=== PATIENT | female | born 1965 | race Caucasian/White ===

== ENCOUNTER 2019-07-09 07:43 | Day surgery (SDC) | payer OTHER ==
[2019-07-04 10:12] VITALS: BMI 27.7
[~2019-07-09 07:43] MED LIST: MIDAZOLAM 2 MG/2 ML VIAL IV PRN; ROPIVACAINE 246.25 MG, EPINEPHrine 0.5 MG, KETOROLAC 30 MG, cloNIDine HCL/PF 80 MCG, WA... MISCELLANE ONE; SCOPOLAMINE 1.5MG/72HR PATCH TRANSDERM ONE; TRANEXAMIC ACID 1,000 MG in SODIUM CHLORIDE 0.9% 100 ML IVPB ONE
[2019-07-09] MEDS ORDERED: TEMAZEPAM 15 MG CAP PO PRN (08:42)
[2019-07-09] MEDS ORDERED: traMADol 50 MG TAB PO PRN (08:42)
[2019-07-09] MEDS ORDERED: HYDROcodone/APAP 7.5-325MG 1 EACH TAB PO PRN (08:42)
[2019-07-09] MEDS ORDERED: ONDANSETRON 4 MG/2 ML VIAL IVP PRN (08:42)
[2019-07-09] MEDS ORDERED: DIAZEPAM 5 MG TAB PO PRN (08:42)
[2019-07-09] MEDS ORDERED: MAGNESIUM HYDROXIDE 2,400 MG/10 ML CUP PO PRN (08:42)
[2019-07-09] MEDS ORDERED: ACETAMINOPHEN TAB 325 MG TAB PO PRN (08:42)
[2019-07-09] MEDS ORDERED: HYDROmorphone 0.5 MG/0.5 ML SYRINGE IVP PRN ×2 (08:42)
[2019-07-09] MEDS ORDERED: HYDROmorphone 1 MG/ML 1 ML SYRINGE IVP PRN (08:42)
[2019-07-09] MEDS ORDERED: NALOXONE 0.4 MG/ML 1 ML VIAL IV PRN (08:42)
[2019-07-09] MEDS: LACTATED RINGERS 1,000 ML IV SCH ×4 (08:46→23:28)
[2019-07-09] MEDS ORDERED: LIDOCAINE 1% 20 ML VIAL (10MG/ML) FOR IV START INTRADERMA ONE (08:47)
[2019-07-09] MEDS: MELOXICAM 7.5 MG TAB PO ONE ×2 (08:48→13:29)
[2019-07-09] MEDS: GABAPENTIN 300 MG CAP PO ONE ×2 (08:48→13:29)
[2019-07-09] MEDS: ACETAMINOPHEN TAB 500 MG TAB PO ONE ×2 (08:48→13:28)
[2019-07-09] MEDS: DEXAMETHASONE SOD PHOSPHATE 10 MG/ML 1 ML VIAL IV ONE ×2 (08:48→13:29)
[2019-07-09] MEDS: ONDANSETRON 4 MG/2 ML VIAL IVP ONE ×2 (08:48→13:29)
[2019-07-09] MEDS ORDERED: SODIUM CHLORIDE 0.9% IRRIG 1,000 ML BTL IRRIGATION ONE (09:22)
[2019-07-09] MEDS ORDERED: fentaNYL (PF) 50 MCG/ML 2 ML AMP ONE (09:22)
[2019-07-09] MEDS ORDERED: TRANEXAMIC ACID 1,000 MG/10 ML VIAL ONE (09:22)
[2019-07-09] MEDS ORDERED: SODIUM CHLORIDE 0.9% 100 ML BAG ONE (09:22)
[2019-07-09] MEDS ORDERED: HEPARIN SODIUM,PORCINE 10,000 UNIT/ML 1 ML VIAL ONE (09:22)
[2019-07-09] MEDS ORDERED: PHENYLEPHRINE-0.9% NACL SYG 1 MG/10 ML SYRINGE ONE (09:22)
[2019-07-09] MEDS ORDERED: PROPOFOL 10 MG/ML 20 ML VIAL IV ONE (09:22)
[2019-07-09] MEDS ORDERED: MIDAZOLAM 2 MG/2 ML VIAL ONE (09:22)
[2019-07-09] MEDS ORDERED: ceFAZolin 3,000 MG in SODIUM CHLORIDE 0.9% IRRIGATIO 3,000 ML IRRIGATION ONE (09:27)
--- NOTE | 2019-07-09 10:54 | P.OP ---
Date of Procedure: 07/09/19 Preoperative Diagnosis: Severe osteoarthritis right hip Postoperative Diagnosis: Severe osteoarthritis right hip Procedure(s) Performed: Right total hip arthroplasty with a direct anterior approach Implants: Michael and nephew Polarstem size7 standard Michael & Nephew R3, 3 hole acetabular shell, 52 mm Michael & Nephew reflection 6.5 mm cancellus screw, 20 mm 2 Michael [employer] Nephew R3, XLPE 20 acetabular liner Michael & Nephew Oxinium femoral head 36 m, +4 All components were press-fit. The articulation is Oxinium on polyethylene. Anesthesia: spinal Surgeon: Jorge Nobles Sign Painter Apprentice #1: Iker Villavicencio Pathology: other (Femoral head) Condition: stable Disposition: PACU Indications for Procedure: After failure of conservative treatment we discussed the surgical and nonsurgical treatment options at length. Patient wishes to proceed with a total hip arthroplasty with a direct anterior approach. Complications specific to this procedure were discussed at length, including but not limited to infection, leg length discrepancy, dislocation, and nerve injury. Patient is aware of all these complications and informed consent was obtained Operative Findings: The operative findings are consistent with severe osteoarthritis of the right hip Description of Procedure: Patient was seen and evaluated in the preoperative area, consent was reviewed, and the surgical site was marked with a skin marker. Patient was then brought to the operating room and given prophylactic antibiotics intravenously. 1 g of Tranexamic acid was also given. A spinal anesthetic was administered by the anesthesia department. The patient was then placed on the Burlington table with the bony prominences well-padded. The hip area was then prepped and draped in usual sterile fashion. A universal timeout was then performed, which confirmed the patient's name, surgical site, ALLERGIES, and procedure being performed. Next the incision site was located at 1 cm distal and 1 cm lateral to the anterior superior iliac spine. The skin and subcutaneous tissues were sharply incised. Incision was carefully dissected down to the fascia overlying the tensor fascia audrey muscle. This fascia was then incised in line with the incision. Next, using blunt finger dissection, the tensor fascia audrey muscle was dissected off its investing fascia. The muscle was then carefully retracted laterally with a cobra retracto r over the lateral neck of the femur. Next, the circumflex vessels were identified and cauterized using the AquaMantis device. The anterior hip capsule was then exposed. The capsule was then opened and an inverted T fashion. Cobra retractors were then placed intracapsularly. The proximal femur was then visualized. The femoral neck was then osteotomized appropriate level above the lesser troc hanter. Small amount of traction was placed with the Burlington table. A small wedge of bone was then removed from the remaining femoral head. Next, using a corkscrew femoral head was easily removed from the acetabulum. On gross visual inspection, the femoral head had complete loss of articular cartilage in multiple periarticular osteophytes. Attention was then turned to the acetabulum. the acetabulum was exposed and any remaining labrum was excised. Sequential reaming of the acetabulum was performed using fluoroscopic guidance. When the appropriate size was reached, a trial was then placed. The position and fit of the trial was checked with fluoroscopy. The trial was then removed. Then, using fluoroscopic guidance, the final implant was impacted at 20 of anteversion and 40 of abduction, and fully seated in the acetabulum. 2 screws were then placed in the acetabulum. Again fluoroscopy was used to check position of the screws. Next, the liner was then impacted, with a 20 elevated liner located in the anterior superior quadrant. Component locking was confirmed. Attention was then directed to the femur. With the aid of the Burlington table, the femur was externally rotated to approximately 130, extended, and abducted under the opposite leg. A side hook was then placed under the proximal femur, and the side hook elevator was used to elevate the proximal femur. Retractors were then placed. A capsular release was performed, as well as a release of the conjoined tendon, which afforded excellent visualization of the proximal femur. Next, a box osteotome was used to lateralize the proximal femur. A hand deicer element winder was then used to locate the femoral canal. Sequential broaching was then performed with appropriate size which afforded excellent fixation in the proximal femur. A trial was then placed with appropriate head and neck, and the hip was gently reduced with the aid of the Burlington table. Fluoroscopy was then used to check position of the components, as well as to ensure equal leg lengths. The hip was then gently dislocated and the trials were then removed. Final implants were then impacted and the hip was again reduced. Final fluoroscopic x-rays confirm ed that the components were in anatomic position, as well as equal leg lengths. The hip was also taken through range of motion, and found to be stable. The hip was then copiously irrigated with antibiotic solution with pulsatile lavage. The hip was then irrigated with Irrisept solution. The soft tissues were then injected with a ropivacaine solution, which consisted of 246.25 mg of ropivacaine, 0.5 mg of epinephrine, 30 mg of Toradol, 80 g of clonidine, and 48.45 mL of sterile water, for a total of 100 mL of fluid injected. A second dose of 1 g of Tranexamic acid was also given. the fascia was then closed with 2-0 strata fix suture. The subcutaneous tissue was closed with 3-0 Vicryl. The subcuticular tissue was closed with 3-0 strata fix suture. The skin was then closed with Dermabond glue and a sterile silver dressing. The patient was then transferred to the recovery room in stable condition. The medical receptionist medical assistant SHALOM Guerrero was required due to the complexity of surgery, and the need for skilled surgical dental assistant for positioning, draping, exposure, retraction, and closure of the wound.
--- NOTE | 2019-07-09 11:59 | XR ---
EXAMINATION TYPE: XR Hip Limited RT DATE OF EXAM: 07/09/2019 CLINICAL HISTORY: Right hip pain and osteoarthritis. TECHNIQUE: Single AP portable view of right hip is obtained immediately postoperatively. COMPARISON: None. FINDINGS: Metallic hardware from right hip arthroplasty is seen and appears satisfactory in alignment and position. There is evidence of recent surgery with some soft tissue swelling noted laterally. IMPRESSION: Metallic hardware from right hip arthroplasty is satisfactory in position.
--- NOTE | 2019-07-09 12:10 | FL ---
Fluoroscopy HISTORY: Anterior hip replacement 1.17 minutes fluoroscopy time supplied to the referring clinician. 2 intraoperative C-arm images doc ument the procedure. See dictated report from orthopedic surgery.
[2019-07-09] MEDS: HYDROmorphone 0.5 MG/0.5 ML SYRINGE IVP PRN ×2 (12:34→12:40)
[2019-07-09] MEDS: HYDROcodone/APAP 7.5-325MG 1 EACH TAB PO PRN ×2 (15:15→21:53)
[2019-07-09] MEDS ORDERED: LORATADINE 10 MG TAB PO PRN (17:11)
[2019-07-09] MEDS ORDERED: SENNOSIDES-DOCUSATE SODIUM 1 EACH TAB PO SCH (21:00)
[2019-07-09] MEDS: ASPIRIN 325 MG TAB PO SCH (21:50)
[2019-07-10] MEDS: LACTATED RINGERS 1,000 ML IV SCH ×2 (05:03→08:38)
[2019-07-10] MEDS: HYDROcodone/APAP 7.5-325MG 1 EACH TAB PO PRN (05:56)
[2019-07-10 07:41] VITALS: BP 129/74; PULSE 70; RESP 16; TEMP 97.8
[2019-07-10 07:44] LABS: Basophils % (A) 1 %; Eosinophils # (A) 0.1 k/uL (0-0.7); Eosinophils % (A) 1 %; HCT 30.3 % (34.0-46.0); HGB 9.7 gm/dL (11.4-16.0); Lymphocytes # (A) 2.9 k/uL (1.0-4.8); Lymphocytes % (A) 32 %; MCH 30.7 pg (25.0-35.0); Mean Platelet Volume 7.5; Monocytes # (A) 0.6 k/uL (0-1.0); Monocytes % (A) 7 %; Neutrophils # (A) 5.1 k/uL (1.3-7.7); Neutrophils % (A) 57 %; Platelet Count 184 k/uL (150-450); RBC 3.15 m/uL (3.80-5.40); RDW 13.3 % (11.5-15.5); WBC 8.9 k/uL (3.8-10.6)
--- NOTE | 2019-07-10 08:08 | P.DS ---
Providers Expected date of discharge: 07/10/19 Attending physician: Jorge Nobles Consults: 07/09/19 08:42 Consult Physician Routine Consulting Provider: Elizabeth Delaney Consult Reason/Comments: post op medical management Do you want consulting provider notified?: Yes Primary care physician: Ta Knott - Discharge Diagnosis(es) (1) Osteoarthritis of right hip Current Visit: Yes Status: Acute (2) Status post total hip replacement, right Current Visit: Yes Status: Acute Hospital Course: This is a 54-year-old female with known history of degenerative arthritis of the right hip. The patient presents for evaluation. After discussion and consideration patient elects to proceed with total hip arthroplasty. The patient is seen preoperatively by her primary care physician and cleared for surgery. Patient is admitted to [facility] on 07/09/2019 for right anterior total hip arthroplasty. The procedures performed without complication or sequelae. The patient is doing well postoperatively. Labs and vital signs are stable on day of discharge. On day of discharge patient's hip incision is healing well. There is minimal erythema. There is no drainage noted at this time. There is minimal soft tissue swelling to the hip and thigh. Patient has full foot and ankle motion without difficulty or pain. Neurovascular status to the right lower extremity is intact. Patient is discharged to home in good condition. Pertinent Studies: Laboratory Tests 07/10/19 06:35 WBC 8.9 RBC 3.15 L Hgb 9.7 L Hct 30.3 L Patient Condition at Discharge: Stable Plan - Discharge Summary Discharge Rx Participant: Yes New Discharge Prescriptions: New Aspirin 325 mg PO BID #60 tab Docusate [Colace] 100 mg PO BID #60 capsule Hydrocodone/Acetaminophen [Rhodes 7.5-325] 1 - 2 tab PO Q4-6H PRN 7 Days #50 tab PRN Reason: Pain No Action Vitamin C/Biotin [Hair, Skin and Nails] 1 tab PO DAILY Acetaminophen Tab [Tylenol Tab] 650 mg PO Q6H PRN PRN Reason: Pain Ibuprofen [Motrin] 800 mg PO BID PRN PRN Reason: Pain Cetirizine HCl [Zyrtec] 10 mg PO DAILY PRN PRN Reason: Nasal Congestion Discharge Medication List Acetaminophen Tab [Tylenol Tab] 650 mg PO Q6H PRN 07/04/19 [History] Cetirizine HCl [Zyrtec] 10 mg PO DAILY PRN 07/04/19 [History] Ibuprofen [Motrin] 800 mg PO BID PRN 07/04/19 [History] Vitamin C/Biotin [Hair, Skin and Nails] 1 tab PO DAILY 07/04/19 [History] Aspirin 325 mg PO BID #60 tab 07/10/19 [Rx] Docusate [Colace] 100 mg PO BID #60 capsule 07/10/19 [Rx] Hydrocodone/Acetaminophen [Rhodes 7.5-325] 1 - 2 tab PO Q4-6H PRN 7 Days #50 tab 07/10/19 [Rx] Follow up Appointment(s)/Referral(s): Jorge Nobles DO [Doctor of Osteopathic Medicine] - 2 Weeks Activity/Diet/Wound Care/Special Instructions: Weightbearing as tolerated with walker Keep dressing in place for 10 days unless saturated Aspirin 325 mg twice a day May shower over dressing Follow up with Dr. Jorge Nobles in 2 weeks. Call [facility] with questions or concerns, Discharge Disposition: HOME WITH HOME HEALTH SERVICES
[2019-07-10] MEDS: ASPIRIN 325 MG TAB PO SCH (08:36)
[2019-07-10] MEDS ORDERED: NON FORMULARY DRUG (Vitamin C/Biotin [Hair, Skin And Nails] 1 TAB) PO SCH (09:00)
[2019-07-10] MEDS ORDERED: MULTIVITAMINS, THERA 1 EACH TAB PO SCH (12:00)
== END 2019-07-10 11:20 | disposition home health service (06) ==
LOC: OR 07:43 → 4SSUR 13:19 → EDSTATUS 14:20 → 4SSUR 23:38 → OR 07-10 11:20
PROVIDERS: ATTEND Orthopaedic Surgery
DX: M16.11 Unilateral primary osteoarthritis, right hip (principal); M06.051 Rheumatoid arthritis without rheumatoid factor, right hip; M06.061 Rheumatoid arthritis without rheumatoid factor, right knee; M06.062 Rheumatoid arthritis without rheumatoid factor, left knee; M81.0 Age-related osteoporosis without current pathological fracture; E03.9 Hypothyroidism, unspecified; I49.9 Cardiac arrhythmia, unspecified; I05.1 Rheumatic mitral insufficiency; I67.1 Cerebral aneurysm, nonruptured; G25.81 Restless legs syndrome; N39.0 Urinary tract infection, site not specified; M34.9 Systemic sclerosis, unspecified; J30.9 Allergic rhinitis, unspecified; Z88.0 Allergy status to penicillin; Z88.7 Allergy status to serum and vaccine; Z87.891 Personal history of nicotine dependence; Z86.73 Personal history of transient ischemic attack (TIA), and cerebral infarction without residual deficits; Z90.710 Acquired absence of both cervix and uterus; Z97.3 Presence of spectacles and contact lenses; Z90.49 Acquired absence of other specified parts of digestive tract; Z98.890 Other specified postprocedural states; Z83.3 Family history of diabetes mellitus; Z82.49 Family history of ischemic heart disease and other diseases of the circulatory system
CPT/HCPCS: 97116; 97161; 97535; 97165; 86891; 86900; 86901; 88305; 85025; 86850; 88311; 73501 ×2; 27130; C1776; J2250; J0171; J1644; J1100; J0690 ×2; J2405; J3010; J1885; J2795; J2370; J2704; J0735; J1170

== ENCOUNTER → 2020-08-06 | Outpatient (CLI) | payer OTHER ==
--- NOTE | 2020-08-06 15:37 | MR ---
EXAMINATION TYPE: MR lumbar spine wo con DATE OF EXAM: 08/06/2020 COMPARISON: None HISTORY: [facility] lower back pain TECHNIQUE: Multiplanar, multisequence images of the lumbar spine were acquired. L1-L2: Normal disc appearance without desiccation. No herniation, protrusion or disc bulging. No ca nal stenosis is present. Foramina are patent bilaterally. L2-L3: Posterior extension endplate disc complex causes minimal anterior mass effect on the thecal sa c. Circumferential extension endplate disc complex results in some foraminal encroachment greater on the right than on the left. L3-L4: Posterior extension endplate disc complex causes mild anterior mass effect on the thecal sac. Mild bilateral foraminal encroachment is present L4-L5: Posterior extension of endplate disc complex contacts anterior thecal sac. No significant fora kalie encroachment on the left, lateral extension endplate disc complex extends to cause some mild ri ght-sided foraminal encroachment.. There is some facet arthropathy with hypertrophy ligamentum flavum . L5-S1: Posterior extension endplate disc complex contacts anterior thecal sac. There is some facet ar thropathy change present. No significant foraminal encroachment. Lumbar segments are intact. No paraspinal masses are identified. Conus medullaris has a normal appe arance. Lumbar vertebral bodies show preserved height. Minimal retrolisthesis grade 1 L5-S1, L4-5, L3 -4 and L2-3. Loss of disc height signal present L2-3, L5-S1, there is multilevel spondylosis with end plate discogenic marrow signal change. Probable Schmorl's node present inferior endplate of L4. No ev ident spinal stenosis. IMPRESSION: Degenerative disc disease and facet arthropathy as described, some mild foraminal encroachment is not ed.
== END | disposition home or self-care (01) ==
LOC: RADMRIMAIN 09:04
PROVIDERS: ATTEND Internal Medicine Rheumatology
DX: M51.16 Intervertebral disc disorders with radiculopathy, lumbar region (principal); M47.26 Other spondylosis with radiculopathy, lumbar region
CPT/HCPCS: 72148

== ENCOUNTER 2021-03-26 13:07 | Inpatient (IN) | payer OTHER ==
[2021-03-26] MEDS ORDERED: ALBUTEROL HFA INHALER INHALATION STA (13:30)
[2021-03-26] MEDS ORDERED: ACETAMINOPHEN TAB 500 MG TAB PO STA ×2 (13:30→14:35)
[2021-03-26] MEDS ORDERED: ALBUTEROL HFA INHALER INHALATION PRN (13:30)
[2021-03-26] MEDS ORDERED: SODIUM CHLORIDE 0.9% 1,000 ML IV STA (13:31)
--- NOTE | 2021-03-26 13:33 | ED ---
General Adult HPI - General Chief complaint: Recheck/Abnormal Lab/Rx Stated complaint: Covid+, SOB, weakness Time Seen by Provider: 03/26/21 13:25 Source: patient, RN notes reviewed Mode of arrival: ambulatory Limitations: no limitations - History of Present Illness Initial comments: Patient is a pleasant 55-year-old female presenting to the emergency department with difficulty breathing. Patient has had symptoms for 2 weeks. Patient was diagnosed with COVID-19 infection 10 days ago. Patient has been having fever and chills and myalgias. Patient also has headaches and muscle taste. Patient has had a few episodes of diarrhea. Patient does have cough, nonproductive. Patient was not vaccinated. - Related Data Home Medications Medication Instructions Recorded Confirmed Acetaminophen Tab [Tylenol] 650 mg PO Q4H PRN 03/26/21 03/26/21 Allergies Allergy/AdvReac Type Severity Reaction Status Date / Time Penicillins AdvReac Anaphylaxis Verified 03/26/21 14:18 Review of Systems ROS Statement: Those systems with pertinent positive or pertinent negative responses have been documented in the HPI. ROS Other: All systems not noted in ROS Statement are negative. Constitutional: Reports: fever, chills Eyes: Denies: eye pain ENT: Denies: ear pain Respiratory: Reports: cough, dyspnea Cardiovascular: Denies: chest pain Endocrine: Reports: fatigue Gastrointestinal: Reports: diarrhea. Denies: abdominal pain Genitourinary: Denies: dysuria Musculoskeletal: Denies: back pain Skin: Denies: rash Neurological: Denies: weakness Past Medical History Past Medical History: CVA/TIA, Osteoarthritis (OA) Additional Past Medical History / Comment(s): HX TIA, BRAIN ANEURYSM WITH COILS, HEART MURMUR, VARICOSE VEINS., PAIN RIGHT HIP-USING CANE History of Any Multi-Drug Resistant Organisms: None Reported Past Surgical History: Appendectomy, Section, Hysterectomy, Orthopedic Surgery Additional Past Surgical History / Comment(s): X2, RIGHT KNEE ARTHROSCOPY, BRAIN ANEURYSM WITH COILS. Past Anesthesia/Blood Transfusion Reactions: Previous Problems w/ Anesthesia Additional Past Anesthesia/Blood Transfusion Reaction / Comment(s): STATES BP AND HEART RATE DROPPED WITH ANEURYSM SURGERY., ALSO HAS DIFFICULTY WAKING UP. Past Psychological History: No Psychological Hx Reported Smoking Status: Former smoker Past Alcohol Use History: Occasional Past Drug Use History: None Reported - Past Family History Mother Family Medical History: Cancer Additional Family Medical History / Comment(s): LUNG CANCER Father Family Medical History: Cancer Additional Family Medical History / Comment(s): STOMACH CANCER General Exam Limitations: no limitations General appearance: alert, in no apparent distress Head exam: Present: normocephalic Eye exam: Present: normal appearance Neck exam: Present: normal inspection Respiratory exam: Present: normal lung sounds bilaterally Cardiovascular Exam: Present: tachycardia GI/Abdominal exam: Present: soft. Absent: tenderness Extremities exam: Present: normal inspection Neurological exam: Present: alert Psychiatric exam: Present: normal affect, normal mood Skin exam: Present: normal color Course Vital Signs 03/26/21 03/26/21 03/26/21 13:09 13:32 13:48 Temperature 103.3 F H Pulse Rate 134 H 132 H 118 H Respiratory 18 22 20 Rate Blood Pressure 120/67 140/88 O2 Sat by Pulse 91 L 84 L 94 L Oximetry EKG Findings - EKG Comments: EKG Findings:: Sinus tach with a rate of 127. DC 120. QRS 92. QT 3:30. QTC 4 79. Normal axis. Normal QRS. No acute ST change. Medical Decision Making - Medical Decision Making Patient reevaluated and updated. Case was discussed with Dr. Ramirez, covering Dr. mike, who will admit. - Lab Data Result diagrams: 03/26/21 13:35 03/26/21 13:35 Lab Results 03/26/21 03/26/21 03/26/21 Range/Units 13:35 13:35 13:35 WBC 5.5 (3.8-10.6) k/uL RBC 4.43 (3.80-5.40) m/uL Hgb 13.6 (11.4-16.0) gm/dL Hct 40.0 (34.0-46.0) % MCV 90.4 (80.0-100.0) fL MCH 30.6 (25.0-35.0) pg MCHC 33.9 (31.0-37.0) g/dL RDW 13.1 (11.5-15.5) % Plt Count 291 (150-450) k/uL MPV 8.3 Neutrophils % 79 % Lymphocytes % 14 % Monocytes % 4 % Eosinophils % 0 % Basophils % 0 % Neutrophils # 4.3 (1.3-7.7) k/uL Lymphocytes # 0.8 L (1.0-4.8) k/uL Monocytes # 0.2 (0-1.0) k/uL Eosinophils # 0.0 (0-0.7) k/uL Basophils # 0.0 (0-0.2) k/uL Sodium 136 L (137-145) mmol/L Potassium 3.3 L (3.5-5.1) mmol/L Chloride 97 L (98-107) mmol/L Carbon Dioxide 25 (22-30) mmol/L Anion Gap 14 mmol/L BUN 15 (7-17) mg/dL Creatinine 0.91 (0.52-1.04) mg/dL Est GFR (CKD-EPI)AfAm 81 (>60 ml/min/1.73 sqM) Est GFR (CKD-EPI)NonAf 70 (>60 ml/min/1.73 sqM) Glucose 153 H (74-99) mg/dL Plasma Lactic Acid Evangelist 2.7 H* (0.7-2.0) mmol/L Calcium 8.6 (8.4-10.2) mg/dL Magnesium 2.2 (1.6-2.3) mg/dL Total Bilirubin 0.7 (0.2-1.3) mg/dL AST 54 H (14-36) U/L ALT 28 (4-34) U/L Alkaline Phosphatase 85 (38-126) U/L Lactate Dehydrogenase 1325 H (313-618) U/L C-Reactive Protein 7.7 H (<1.0) mg/dL Total Protein 7.3 (6.3-8.2) g/dL Albumin 3.8 (3.5-5.0) g/dL Coronavirus (PCR) (Not Detectd) 03/26/21 Range/Units 13:35 WBC (3.8-10.6) k/uL RBC (3.80-5.40) m/uL Hgb (11.4-16.0) gm/dL Hct (34.0-46.0) % MCV (80.0-100.0) fL MCH (25.0-35.0) pg MCHC (31.0-37.0) g/dL RDW (11.5-15.5) % Plt Count (150-450) k/uL MPV Neutrophils % % Lymphocytes % % Monocytes % % Eosinophils % % Basophils % % Neutrophils # (1.3-7.7) k/uL Lymphocytes # (1.0-4.8) k/uL Monocytes # (0-1.0) k/uL Eosinophils # (0-0.7) k/uL Basophils # (0-0.2) k/uL Sodium (137-145) mmol/L Potassium (3.5-5.1) mmol/L Chloride (98-107) mmol/L Carbon Dioxide (22-30) mmol/L Anion Gap mmol/L BUN (7-17) mg/dL Creatinine (0.52-1.04) mg/dL Est GFR (CKD-EPI)AfAm (>60 ml/min/1.73 sqM) Est GFR (CKD-EPI)NonAf (>60 ml/min/1.73 sqM) Glucose (74-99) mg/dL Plasma Lactic Acid Evangelist (0.7-2.0) mmol/L Calcium (8.4-10.2) mg/dL Magnesium (1.6-2.3) mg/dL Total Bilirubin (0.2-1.3) mg/dL AST (14-36) U/L ALT (4-34) U/L Alkaline Phosphatase (38-126) U/L Lactate Dehydrogenase (313-618) U/L C-Reactive Protein (<1.0) mg/dL Total Protein (6.3-8.2) g/dL Albumin (3.5-5.0) g/dL Coronavirus (PCR) Detected A (Not Detectd) - Radiology Data Radiology results: image reviewed (Chest x-ray shows interstitial changes with bibasilar infiltrate. Correlate for interstitial pneumonitis versus venous congestion.) Disposition Clinical Impression: COVID-19, Hypoxia Disposition: ADMITTED IP TO THIS HOSP Is patient prescribed a controlled substance at d/c from ED?: No Referrals: Macario Mike MD [Primary Care Provider] - 1-2 days Decision Time: 14:35
[2021-03-26] MEDS ORDERED: ALBUTEROL HFA INHALER INHALATION SCH (14:00)
[2021-03-26 14:06] LABS: Basophils % (A) 0 %; Eosinophils % (A) 0 %; HGB 13.6 gm/dL (11.4-16.0); Lymphocytes # (A) 0.8 k/uL (1.0-4.8); Lymphocytes % (A) 14 %; MCH 30.6 pg (25.0-35.0); MCHC 33.9 g/dL (31.0-37.0); MCV 90.4 fL (80.0-100.0); Mean Platelet Volume 8.3; Monocytes # (A) 0.2 k/uL (0-1.0); Monocytes % (A) 4 %; Neutrophils # (A) 4.3 k/uL (1.3-7.7); Neutrophils % (A) 79 %; Platelet Count 291 k/uL (150-450); RBC 4.43 m/uL (3.80-5.40); RDW 13.1 % (11.5-15.5); WBC 5.5 k/uL (3.8-10.6)
--- NOTE | 2021-03-26 14:07 | XR ---
EXAMINATION TYPE: XR chest 1V portable DATE OF EXAM: 03/26/2021 COMPARISON: NONE HISTORY: Cough TECHNIQUE: Single frontal view of the chest is obtained. FINDINGS: Diffuse interstitial pattern with bibasilar infiltrate. Heart size is within normal limits . No pneumothorax. Diffuse osteopenia. IMPRESSION: Correlate for COPD and chronic interstitial lung disease. Superimposed bibasilar infiltr ate, interstitial pneumonitis or venous congestion.
[2021-03-26 14:22] LABS: Albumin 3.8 g/dL (3.5-5.0); C Reactive Protein 7.7 mg/dL (<1.0); Calcium 8.6 mg/dL (8.4-10.2); Magnesium 2.2 mg/dL (1.6-2.3); Potassium 3.3 mmol/L (3.5-5.1); Total Bilirubin 0.7 mg/dL (0.2-1.3); Total Protein 7.3 g/dL (6.3-8.2)
[2021-03-26 14:29] LABS: INR 1.1 (<1.2); Partial Thromboplastin Time 25.8 sec (22.0-30.0); Prothrombin Time 11.2 sec (9.0-12.0)
[2021-03-26] MEDS ORDERED: ACETAMINOPHEN TAB 500 MG TAB PO PRN (14:35)
[2021-03-26] MEDS ORDERED: NALOXONE 0.4 MG/ML 1 ML VIAL IV PRN (14:38)
[2021-03-26] MEDS ORDERED: IBUPROFEN 600 MG TAB PO STA (14:44)
[2021-03-26] MEDS: ASCORBIC ACID 500 MG TAB PO SCH (14:51)
[2021-03-26] MEDS: CHOLECALCIFEROL 25 MCG (1000 IU) TABLET PO SCH (14:51)
[2021-03-26] MEDS: ZINC SULFATE 220 MG CAP PO SCH (14:51)
[2021-03-26] MEDS: DEXAMETHASONE SOD PHOSPHATE 10 MG/ML 1 ML VIAL IV SCH (14:52)
[2021-03-26] MEDS: SODIUM CHLORIDE 0.9% 1,000 ML IV SCH (15:27)
[2021-03-26] MEDS: ALBUTEROL HFA INHALER INHALATION SCH ×2 (16:01→20:16)
--- NOTE | 2021-03-26 16:04 | CT ---
EXAMINATION TYPE: CT angio chest DATE OF EXAM: 03/26/2021 COMPARISON: Radiograph same day HISTORY: 55-year-old female shortness of breath, Dyspnea TECHNIQUE: Contiguous axial scanning of the chest performed with IV Contrast, patient injected with 1 00, wasted 23 mL of Isovue 370. Coronal/sagittal MIP reconstructions performed. CT DLP: 364.5 mGycm Automated exposure control for dose reduction was used. FINDINGS: The heart is upper limits of normal in size without pericardial effusion. No flattening of the interv entricular septum reflux of contrast into the hepatic veins. Aorta normal caliber with conventional arch vessel branching anatomy. Satisfactory opacification pulmonary arterial system over the breathing motion. Allowing for the chris thing motion. No definite pulmonary embolus is seen. Multiple segmental and more distal arterial bran ches in the lower lobes and also right suprahilar region are nondiagnostic and emboli in these locati ons cannot be adequately excluded on the basis of this exam. There is mediastinal and hilar lymphadenopathy: right paratracheal lymph nodes measure 1.3 cm. Precarinal lymph node measures 1.0 cm. Right hilar lymph node 1.8 cm. Left hilar lymph node 1.8 cm. Subcarinal lymph node 2.0 cm. Lungs show multiple moderate centrilobular emphysema with peripheral and peribronchial vascular groun dglass and reticular opacities. Changes are greatest in the lower lungs. Small hiatal hernia. Small portion of the visualized upper abdomen shows no gross abnormality. Bones: No osseous destructive process. IMPRESSION: 1. BREATHING MOTION ARTIFACT. THERE IS SOME AREAS SUCH THE SMALLER BRANCHES IN THE LOWER LUNGS WELL THE RIGHT SUPRAHILAR REGION WHICH ARE NONDIAGNOSTIC FOR PULMONARY EMBOLI. OTHERWISE, NO DEFIN ITE VISUALIZED PULMONARY EMBOLUS ELSEWHERE IN THE LUNGS. 2. BILATERAL COVID PNEUMONIA. 3. THERE IS MEDIASTINAL AND BILATERAL HILAR LYMPHADENOPATHY MEASURING UP TO 2.0 CM. THIS MAY BE REACT DARLENE. RECOMMEND 3 MONTH FOLLOW-UP CT CHEST TO ENSURE INVOLUTION. 4. SMALL HIATAL HERNIA.
--- NOTE | 2021-03-26 16:32 | P.CNPUL ---
History of Present Illness Consult date: 03/26/21 Reason for consult: pneumonia History of present illness: 55-year-old female patient, not vaccinated for COVID-19, started developing symptoms of fever and chills and myalgias approximately 2 weeks ago. Progressively she started having increased shortness of breath. She had cough that was dry and she had also an episode of diarrhea. She came into the emergency department. She was diagnosed having COVID-19 infection. She was febrile with a temperature 103.3 in the emergency and she was also tachycardic with a heart rate of 134, dropped to 118 it was sinus. Blood pressure was stable. Pulse ox was 91% on room air and subsequently the patient desaturated down to 84%. Currently on 6 L and 93%. Her blood work shows a white cell count of 5.5 with a hemoglobin of 13.6, patient has lymphopenia, lactic acid is at 2.1, LDH is 1325, CRP is at 7.7, bilirubin is normal, liver function tests are normal. Chest x-ray showed interstitial pulmonary for face consistent with COVID-19 related pneumonia. The patient was hospitalized accordingly and pulmonary consultation was requested. The patient was started on Decadron, vitamin C, vitamin D and IV fluids. The patient was also started on zinc oxide. Review of Systems Constitutional: Reports fatigue, Reports fever, Reports weakness Eyes: denies as per HPI, denies blurred vision, denies bulging eye, denies decreased vision, denies diplopia, denies discharge, denies dry eye, denies irritation, denies itching, denies pain, denies photophobia, denies loss of peripheral vision, denies loss of vision, denies tunnel vision/blind spots Ears: deny: decreased hearing, ear discharge, earache, tinnitus Ears, nose, mouth and throat: Reports as per HPI Breasts: absent: as per HPI, change in shape, gynecomastia, masses, nipple discharge, pain, skin changes, swelling Cardiovascular: Reports decreased exercise tolerance, Reports dyspnea on exertion Respiratory: Reports cough, Reports dyspnea Gastrointestinal: Reports as per HPI Genitourinary: Reports as per HPI Menstruation: Reports as per HPI Musculoskeletal: Reports as per HPI Musculoskeletal: absent: ankle pain, ankle stiffness, ankle swelling Integumentary: Reports as per HPI Neurological: Reports gait dysfunction, Reports lack of coordination Psychiatric: Reports as per HPI Endocrine: Reports as per HPI Hematologic/Lymphatic: Reports as per HPI Allergic/Immunologic: Reports as per HPI Past Medical History Past Medical History: CVA/TIA, Osteoarthritis (OA) Additional Past Medical History / Comment(s): HX TIA, BRAIN ANEURYSM WITH COILS, HEART MURMUR, VARICOSE VEINS., PAIN RIGHT HIP-USING CANE History of Any Multi-Drug Resistant Organisms: None Reported Past Surgical History: Appendectomy, Section, Hysterectomy, Orthopedic Surgery Additional Past Surgical History / Comment(s): X2, RIGHT KNEE AR THROSCOPY, BRAIN ANEURYSM WITH COILS. Past Anesthesia/Blood Transfusion Reactions: Previous Problems w/ Anesthesia Additional Past Anesthesia/Blood Transfusion Reaction / Comment(s): STATES BP AND HEART RATE DROPPED WITH ANEURYSM SURGERY., ALSO HAS DIFFICULTY WAKING UP. Past Psychological History: No Psychological Hx Reported Smoking Status: Former smoker Past Alcohol Use History: Occasional Past Drug Use History: None Reported - Past Family History Mother Family Medical History: Cancer Additional Family Medical History / Comment(s): LUNG CANCER Father Family Medical History: Cancer Additional Family Medical History / Comment(s): STOMACH CANCER Medications and Allergies Home Medications Medication Instructions Recorded Confirmed Type Acetaminophen Tab [Tylenol] 650 mg PO Q4H PRN 03/26/21 03/26/21 History Allergies Allergy/AdvReac Type Severity Reaction Status Date / Time Penicillins AdvReac Anaphylaxis Verified 03/26/21 14:18 Physical Exam Vitals: Vital Signs Temp Pulse Resp BP Pulse Ox 03/26/21 14:42 101.3 F H 115 H 22 138/71 93 L 03/26/21 13:48 118 H 20 140/88 94 L 03/26/21 13:32 132 H 22 84 L 03/26/21 13:09 103.3 F H 134 H 18 120/67 91 L Intake and Output 03/26/21 03/26/21 03/26/21 06:59 14:59 22:59 Other: Weight 96.162 kg Gen. appearance the patient is calm and comfortable. Nonacute distress. Currently on 6 L of oxygen by nasal cannula. Breathing is nonlabored. Head exam was generally normal. There was no scleral icterus or corneal arcus. Mucous membranes were moist. Neck was supple and without jugular venous distension, thyromegaly, or carotid bruits. Carotids were easily palpable bilaterally. There was no adenopathy. Lungs sounds are diminished in the patient's crackles in the mid and lower lung field bilaterally Heart sounds are tachycardic, positive S1-S2 and there is a systolic ejection murmur grade 2/6 heard throughout the precordium Abdominal exam revealed normal bowel sounds. The abdomen was soft, non-tender, and without masses, organomegaly, or appreciable enlargement of the abdominal aorta. Examination of the extremities revealed easily palpable radial, femoral and pedal pulses. There was no cyanosis, clubbing or edema. Examination of the skin revealed no evidence of significant rashes, suspicious appearing nevi or other concerning lesions. Results - Laboratory Findings CBC and BMP: 03/26/21 13:35 03/26/21 13:35 PT/INR, D-dimer PT 11.2 sec (9.0-12.0) 03/26/21 13:35 INR 1.1 (<1.2) 03/26/21 13:35 D-Dimer 2.60 mg/L FEU (<0.60) H 03/26/21 13:35 Abnormal lab findings: Abnormal Labs 03/26/21 03/26/21 03/26/21 13:35 13:35 13:35 Lymphocytes # 0.8 L D-Dimer 2.60 H Sodium 136 L Potassium 3.3 L Chloride 97 L Glucose 153 H Plasma Lactic Acid Evangelist AST 54 H Lactate Dehydrogenase 1325 H C-Reactive Protein 7.7 H Coronavirus (PCR) 03/26/21 03/26/21 13:35 13:35 Lymphocytes # D-Dimer Sodium Potassium Chloride Glucose Plasma Lactic Acid Evangelist 2.7 H* AST Lactate Dehydrogenase C-Reactive Protein Coronavirus (PCR) Detected A - Diagnostic Findings Chest x-ray: image reviewed Assessment and Plan Plan: 1 acute COVID-19 related pneumonia, patient is not vaccinated, presenting with 2 weeks history of symptoms with progressive dyspnea and cough and a chest x-ray clearly shows bilateral pneumonia consistent with COVID-19. 2 acute hypoxic respiratory failure secondary to above, currently on 6 L 3 shortness of breath and cough secondary to above 4 elevated inflammatory markers secondary to above 5 previous history of CVA with intracerebral artery coiling, possibly a [employer] bleed/aneurysmal 6 osteoarthritis 7 ongoing episodes of fever secondary to COVID-19 8 elevated inflammatory markers secondary to COVID-19 9 sinus tachycardia probably related to fever and COVID-19 infection 10 mild lactic acidosis secondary to above Plan Continue Decadron Out the window for Remdesivir Lovenox 40 mg subcu for DVT prophylaxis Monitor inflammatory markers Continue vitamin C and vitamin D and zinc sulfate IV fluids at the rate of 75 mL an hour of normal saline Admitted to the medical floor and will continue to follow.
[2021-03-26] MEDS: ENOXAPARIN 40 MG/0.4 ML SYRINGE SQ SCH (17:22)
[2021-03-26] MEDS ORDERED: CEFEPIME 1 GM in SODIUM CHLORIDE 0.9% 50 ML IVPB SCH (18:00)
--- NOTE | 2021-03-26 20:54 | P.HPIM ---
History of Present Illness This is a pleasant 55 years old female with past medical history of CVA/TIA, osteoarthritis. She was diagnosed with Covid about 2 weeks ago when she had coughing and 7 she's been having worsening dyspnea and severe fever with generalized malaise and aches so she decided to come to emergency room. Also she complains from diarrhea every 15 minutes with no associated abdominal pain, no nausea vomiting. No chest pain. No urinary symptoms. Nonsmoker, no alcohol no illicit drugs. Abdomen vaccine 8 it against Covid before. Patient is hypoxic on admission with 6 L/m of oxygen via nasal cannula to keep saturation in the 90s. Stable. Labs including CBC, BMP and liver enzymes are unremarkable. LDH elevated 1325 and C-reactive protein elevated at 7.7. Her d-dimer was elevated 2.6 and she had CTA of the chest which was negative for PE showing bilateral pneumonia. Also showing bilateral mediastinal and hilar lymphadenopathy. Patient was started on dexamethasone, normal saline at 100 mL per hour, vitamin C, vitamin D, zinc. Lanoxin. With pulmonary consult. Review of Systems CONSTITUTIONAL: No fever, no malaise, no fatigue. HEENT: No recent visual problems or hearing problems. Denied any sore throat. CARDIOVASCULAR: No orthopnea, PND, no palpitations, no syncope. PULMONARY: No chest wall tenderness, no hemoptysis. GASTROINTESTINAL: No diarrhea, no nausea, no vomiting, no abdominal pain. Normoactive bowel sounds. NEUROLOGICAL: No headaches, no weakness, no numbness. HEMATOLOGICAL: Denies any bleeding or petechiae. GENITOURINARY: Denies any burning micturition, frequency, or urgency. MUSCULOSKELETAL/RHEUMATOLOGICAL: Denies any joint pain, swelling, or any muscle pain. ENDOCRINE: Denies any polyuria or polydipsia. Past Medical History Past Medical History: CVA/TIA, Osteoarthritis (OA) Additional Past Medical History / Comment(s): HX TIA, BRAIN ANEURYSM WITH COILS, HEART MURMUR, VARICOSE VEINS., PAIN RIGHT HIP-USING CANE History of Any Multi-Drug Resistant Organisms: None Reported Past Surgical History: Appendectomy, Section, Hysterectomy, Orthopedic Surgery Additional Past Surgical History / Comment(s): X2, RIGHT KNEE ARTHROSCOPY, BRAIN ANEURYSM WITH COILS. Past Anesthesia/Blood Transfusion Reactions: Previous Problems w/ Anesthesia Additional Past Anesthesia/Blood Transfusion Reaction / Comment(s): STATES BP AND HEART RATE DROPPED WITH ANEURYSM SURGERY., ALSO HAS DIFFICULTY WAKING UP. Past Psychological History: No Psychological Hx Reported Smoking Status: Former smoker Past Alcohol Use History: Occasional Past Drug Use History: None Reported - Past Family History Mother Family Medical History: Cancer Additional Family Medical History / Comment(s): LUNG CANCER Father Family Medical History: Cancer Additional Family Medical History / Comment(s): STOMACH CANCER Medications and Allergies Home Medications Medication Instructions Recorded Confirmed Type Acetaminophen Tab [Tylenol] 650 mg PO Q4H PRN 03/26/21 03/26/21 History Allergies Allergy/AdvReac Type Severity Reaction Status Date / Time Penicillins AdvReac Anaphylaxis Verified 03/26/21 14:18 Physical Exam Vitals: Vital Signs Temp Pulse Resp BP Pulse Ox 03/26/21 17:03 98.9 F 94 22 106/60 92 L 03/26/21 14:42 101.3 F H 115 H 22 138/71 93 L 03/26/21 13:48 118 H 20 140/88 94 L 03/26/21 13:32 132 H 22 84 L 03/26/21 13:09 103.3 F H 134 H 18 120/67 91 L Intake and Output 03/26/21 03/26/21 03/26/21 06:59 14:59 22:59 Other: Weight 96.162 kg Results Results: GENERAL: The patient is alert and oriented x3, not in any acute distress. Well developed, well nourished. HEENT: Pupils are round and equally reacting to light. EOMI. No scleral icterus. No conjunctival pallor. Normocephalic, atraumatic. No pharyngeal erythema. No thyromegaly. CARDIOVASCULAR: S1 and S2 present. No murmurs, rubs, or gallops. -PULMONARY: Chest is clear to auscultation, no wheezing . bilateral crepitation. ABDOMEN: Soft, nontender, nondistended, normoactive bowel sounds. No palpable organomegaly. MUSCULOSKELETAL: No joint swelling or deformity. EXTREMITIES: No cyanosis, clubbing, or pedal edema. NEUROLOGICAL: Gross neurological examination did not reveal any focal deficits. SKIN: No rashes. no petechiae. CBC & Chem 7: 03/26/21 13:35 03/26/21 13:35 Labs: Abnormal Lab Results - Last 24 Hours (Table) 03/26/21 03/26/21 03/26/21 Range/Units 13:35 13:35 13:35 Lymphocytes # 0.8 L (1.0-4.8) k/uL D-Dimer 2.60 H (<0.60) mg/L FEU Sodium 136 L (137-145) mmol/L Potassium 3.3 L (3.5-5.1) mmol/L Chloride 97 L (98-107) mmol/L Glucose 153 H (74-99) mg/dL Plasma Lactic Acid Evangelist (0.7-2.0) mmol/L AST 54 H (14-36) U/L Lactate Dehydrogenase 1325 H (313-618) U/L C-Reactive Protein 7.7 H (<1.0) mg/dL Coronavirus (PCR) (Not Detectd) 03/26/21 03/26/21 Range/Units 13:35 13:35 Lymphocytes # (1.0-4.8) k/uL D-Dimer (<0.60) mg/L FEU Sodium (137-145) mmol/L Potassium (3.5-5.1) mmol/L Chloride (98-107) mmol/L Glucose (74-99) mg/dL Plasma Lactic Acid Evangelist 2.7 H* (0.7-2.0) mmol/L AST (14-36) U/L Lactate Dehydrogenase (313-618) U/L C-Reactive Protein (<1.0) mg/dL Coronavirus (PCR) Detected A (Not Detectd) Assessment and Plan Assessment: Acute covid bilateral pneumonia Acute hypoxic respiratory failure bilateral mediastinal and hilar lymphadenopathy Increase inflammatory markers. Patient presents because of dyspnea and fever. History of CVA History of osteoarthritis Obesity with BMI of 31.3. Plan: This is a pleasant 55 years old female presents with Covid pneumonia. With multiple vitamins, vitamin C, vitamin D and zinc. On dexamethasone Lovenox. Pulmonary consult IV hydration. Monitor inflammatory markers and chest x-ray Labs and medication were reviewed.. Continue same treatment. Continue with symptomatic treatment. Resume home medication. Monitor lytes and vitals. DVT and GI prophylaxis. Further recommendationsas per clinical course of the patient DVT prophylaxis: Subcutaneous Lovenox GI Prophylaxis: Pepcid Prognosis is guarded
[2021-03-26] MEDS: MELATONIN 5 MG TABLET PO SCH (22:20)
[2021-03-26] MEDS: guaiFENesin-DM 100-10MG/5ML 10 ML CUP PO SCH ×2 (22:21→22:45)
[2021-03-27] MEDS: SODIUM CHLORIDE 0.9% 1,000 ML IV SCH ×2 (03:19→16:46)
[2021-03-27] MEDS: guaiFENesin-DM 100-10MG/5ML 10 ML CUP PO SCH ×3 (05:16→17:49)
[2021-03-27 07:09] LABS: Glucose,Whole Blood 160 mg/dL (75-99)
--- NOTE | 2021-03-27 07:17 | XR ---
EXAMINATION TYPE: XR chest 1V portable DATE OF EXAM: 03/27/2021 HISTORY: Shortness of breath. COMPARISON: 03/26/2021 TECHNIQUE: Single view of the chest is submitted. FINDINGS: Demonstrated are scattered senescent parenchymal change. Scattered interstitial infiltrates persist unchanged. The heart is stable. Hilar and mediastinal structures are within normal limits. Degenerative changes are seen of the dorsal spine. IMPRESSION: 1. Stable chest
[2021-03-27] MEDS: ALBUTEROL HFA INHALER INHALATION SCH ×4 (07:51→19:52)
[2021-03-27 09:43] LABS: C Reactive Protein 6.4 mg/dL (0.00-0.80)
[2021-03-27] MEDS: ASCORBIC ACID 500 MG TAB PO SCH ×2 (09:48→19:54)
[2021-03-27] MEDS: ENOXAPARIN 40 MG/0.4 ML SYRINGE SQ SCH (09:48)
[2021-03-27] MEDS: CHOLECALCIFEROL 25 MCG (1000 IU) TABLET PO SCH (09:48)
[2021-03-27] MEDS: ZINC SULFATE 220 MG CAP PO SCH (09:48)
--- NOTE | 2021-03-27 11:42 | P.PN ---
Subjective Progress Note Date: 03/27/21 [address] [address] [facility], the Patient Is Being Seen for a Follow-Up. Is a 55-year-old. Patient Was in the Emergency Department Yesterday for COVID-19 Related Pneumonia. This Morning, the Patient Is on Oxygen and She Is on 6 L High Flow. She Is Afebrile and She Is Hemodynamically Stable. Note That the Patient Was Having Episodes of Fever at a Time of Admission. Repeat chest x-ray showed lower lobe pulmonary infiltrates consistent with COVID-19 related pneumonia. In terms of her blood work, her d-dimer came back at 1.53, slightly improved compared to yesterday. LDH level dropped down to 432 and the CRP level is down to 6.4. She remains on Decadron. As mentioned earlier, she is out of the window for Remdesivir treatment. She is on Lovenox 40 mg subcu on a daily basis. She is also being hydrated with IV fluids receiving 100 mL of normal saline Objective - Vital Signs Vital signs: Vital Signs Temp 98.1 F 03/27/21 11:32 Pulse 85 03/27/21 11:32 Resp 18 03/27/21 11:32 BP 109/73 03/27/21 11:32 Pulse Ox 96 03/27/21 11:32 Intake & Output 03/26/21 03/27/21 03/27/21 18:59 06:59 18:59 Weight 96.162 kg 96.162 kg Other: Voiding Method Toilet Bedside Commode # Voids 1 - Exam Gen. appearance the patient is calm and comfortable. Nonacute distress. Currently on 6 L of oxygen by nasal cannula. Breathing is nonlabored. Head exam was generally normal. There was no scleral icterus or corneal arcus. Mucous membranes were moist. Neck was supple and without jugular venous distension, thyromegaly, or carotid bruits. Carotids were easily palpable bilaterally. There was no adenopathy. Lungs sounds are diminished in the patient's crackles in the mid and lower lung field bilaterally Heart sounds are tachycardic, positive S1-S2 and there is a systolic ejection murmur grade 2/6 heard throughout the precordium Abdominal exam revealed normal bowel sounds. The abdomen was soft, non-tender, and without masses, organomegaly, or appreciable enlargement of the abdominal aorta. Examination of the extremities revealed easily palpable radial, femoral and pedal pulses. There was no cyanosis, clubbing or edema. Examination of the skin revealed no evidence of significant rashes, suspicious appearing nevi or other concerning lesions. - Labs CBC & Chem 7: 03/26/21 13:35 03/26/21 13:35 Labs: Abnormal Lab Results - Last 24 Hours (Table) 03/26/21 03/26/21 03/26/21 Range/Units 13:35 13:35 13:35 Lymphocytes # 0.8 L (1.0-4.8) k/uL D-Dimer 2.60 H (<0.60) mg/L FEU Sodium 136 L (137-145) mmol/L Potassium 3.3 L (3.5-5.1) mmol/L Chloride 97 L (98-107) mmol/L Glucose 153 H (74-99) mg/dL POC Glucose (mg/dL) (75-99) mg/dL Plasma Lactic Acid Evangelist (0.7-2.0) mmol/L Ferritin 1244.0 H (10.0-291.0) ng/mL AST 54 H (14-36) U/L Lactate Dehydrogenase 1325 H (313-618) U/L C-Reactive Protein 7.7 H (<1.0) mg/dL Procalcitonin (0.02-0.09) ng/mL Coronavirus (PCR) (Not Detectd) 03/26/21 03/26/21 03/26/21 Range/Units 13:35 13:35 13:35 Lymphocytes # (1.0-4.8) k/uL D-Dimer (<0.60) mg/L FEU Sodium (137-145) mmol/L Potassium (3.5-5.1) mmol/L Chloride (98-107) mmol/L Glucose (74-99) mg/dL POC Glucose (mg/dL) (75-99) mg/dL Plasma Lactic Acid Evangelist 2.7 H* (0.7-2.0) mmol/L Ferritin (10.0-291.0) ng/mL AST (14-36) U/L Lactate Dehydrogenase (313-618) U/L C-Reactive Protein (<1.0) mg/dL Procalcitonin 0.39 H (0.02-0.09) ng/mL Coronavirus (PCR) Detected A (Not Detectd) 03/27/21 03/27/21 03/27/21 Range/Units 06:16 06:16 07:02 Lymphocytes # (1.0-4.8) k/uL D-Dimer 1.53 H (<0.60) mg/L FEU Sodium (137-145) mmol/L Potassium (3.5-5.1) mmol/L Chloride (98-107) mmol/L Glucose (74-99) mg/dL POC Glucose (mg/dL) 160 H (75-99) mg/dL Plasma Lactic Acid Evangelist (0.7-2.0) mmol/L Ferritin (10.0-291.0) ng/mL AST (14-36) U/L Lactate Dehydrogenase 432 H (313-618) U/L C-Reactive Protein 6.40 H (<1.0) mg/dL Procalcitonin (0.02-0.09) ng/mL Coronavirus (PCR) (Not Detectd) Assessment and Plan Plan: 1 acute COVID-19 related pneumonia, patient is not vaccinated, presenting with 2 weeks history of symptoms with progressive dyspnea and cough and a chest x-ray clearly shows bilateral pneumonia consistent with COVID-19. Improved compared to yesterday. Receiving hydration, steroids and anticoagulation. Oxygenation is unchanged. 2 acute hypoxic respiratory failure secondary to above, currently on 6 L 3 shortness of breath and cough secondary to above 4 elevated inflammatory markers secondary to above 5 previous history of CVA with intracerebral artery coiling, possibly a [employer] bleed/aneurysmal 6 osteoarthritis 7 ongoing episodes of fever secondary to COVID-19 8 elevated inflammatory markers secondary to COVID-19 9 sinus tachycardia probably related to fever and COVID-19 infection 10 mild lactic acidosis secondary to above Plan Continue Decadron Out the window for Remdesivir Continue Lovenox 40 mg subcu for DVT prophylaxis Monitor inflammatory markers, shows improvement Continue vitamin C and vitamin D and zinc sulfate IV fluids at the rate of 75 mL an hour of normal saline She is still very weak and tired and lethargic. We'll continue to follow. May try to wean down the FiO2 down to 5 L of lung and the pulse ox remained above 90%.
[2021-03-27] MEDS: DEXAMETHASONE SOD PHOSPHATE 10 MG/ML 1 ML VIAL IV SCH (12:23)
--- NOTE | 2021-03-27 15:00 | P.PN ---
Subjective This is a pleasant 55 years old female with past medical history of CVA/TIA, osteoarthritis. She was diagnosed with Covid about 2 weeks ago when she had coughing and 7 she's been having worsening dyspnea and severe fever with generalized malaise and aches so she decided to come to emergency room. Also she complains from diarrhea every 15 minutes with no associated abdominal pain, no nausea vomiting. No chest pain. No urinary symptoms. Nonsmoker, no alcohol no illicit drugs. Abdomen vaccine 8 it against Covid before. Patient is hypoxic on admission with 6 L/m of oxygen via nasal cannula to keep saturation in the 90s. Stable. Labs including CBC, BMP and liver enzymes are unremarkable. LDH elevated 1325 and C-reactive protein elevated at 7.7. Her d-dimer was elevated 2.6 and she had CTA of the chest which was negative for PE showing bilateral pneumonia. Also showing bilateral mediastinal and hilar lymphadenopathy. Patient was started on dexamethasone, normal saline at 100 mL per hour, vitamin C, vitamin D, zinc. Lanoxin. With pulmonary consult. 03/27/2021 Patient respiratory status looks same like yesterday with no worsening. She is saturating 90s on 6 L oxygen. No fever this morning. Her diarrhea stopped D-dimer down to 1.5. LDH down to 432 and C-reactive protein down to 6.4 went she remains on dexamethasone, multiple vitamins and normal saline at 75 mL/h Repeat chest x-ray in the morning Objective - Vital Signs Vital signs: Vital Signs Temp 98.1 F 03/27/21 11:32 Pulse 85 03/27/21 11:32 Resp 18 03/27/21 11:32 BP 109/73 03/27/21 11:32 Pulse Ox 96 03/27/21 11:32 Intake & Output 03/26/21 03/27/21 03/27/21 18:59 06:59 18:59 Weight 96.162 kg 96.162 kg Other: Voiding Method Toilet Bedside Commode # Voids 1 - Exam GENERAL: The patient is alert and oriented x3, not in any acute distress. Well developed, well nourished. HEENT: Pupils are round and equally reacting to light. EOMI. No scleral icterus. No conjunctival pallor. Normocephalic, atraumatic. No pharyngeal erythema. No thyromegaly. CARDIOVASCULAR: S1 and S2 present. No murmurs, rubs, or gallops. -PULMONARY: Chest is clear to auscultation, no wheezing or bilateral scattered crepitation ABDOMEN: Soft, nontender, nondistended, normoactive bowel sounds. No palpable organomegaly. MUSCULOSKELETAL: No joint swelling or deformity. EXTREMITIES: No cyanosis, clubbing, or pedal edema. NEUROLOGICAL: Gross neurological examination did not reveal any focal deficits. SKIN: No rashes. no petechiae. - Labs CBC & Chem 7: 03/26/21 13:35 03/26/21 13:35 Labs: Abnormal Lab Results - Last 24 Hours (Table) 03/26/21 03/26/21 03/27/21 Range/Units 13:35 13:35 06:16 D-Dimer 1.53 H (<0.60) mg/L FEU POC Glucose (mg/dL) (75-99) mg/dL Ferritin 1244.0 H (10.0-291.0) ng/mL Lactate Dehydrogenase (120-246) U/L C-Reactive Protein (0.00-0.80) mg/dL Procalcitonin 0.39 H (0.02-0.09) ng/mL 03/27/21 03/27/21 Range/Units 06:16 07:02 D-Dimer (<0.60) mg/L FEU POC Glucose (mg/dL) 160 H (75-99) mg/dL Ferritin (10.0-291.0) ng/mL Lactate Dehydrogenase 432 H (120-246) U/L C-Reactive Protein 6.40 H (0.00-0.80) mg/dL Procalcitonin (0.02-0.09) ng/mL Assessment and Plan Assessment: Acute covid bilateral pneumonia Acute hypoxic respiratory failure bilateral mediastinal and hilar lymphadenopathy Increase inflammatory markers. Patient presents because of dyspnea and fever. History of CVA History of osteoarthritis Obesity with BMI of 31.3. Plan: This is a pleasant 55 years old female presents with Covid pneumonia. With multiple vitamins, vitamin C, vitamin D and zinc. On dexamethasone Lovenox. Pulmonary consult IV hydration. Monitor inflammatory markers and chest x-ray Labs and medication were reviewed.. Continue same treatment. Continue with sym ptomatic treatment. Resume home medication. Monitor lytes and vitals. DVT and GI prophylaxis. Further recommendationsas per clinical course of the patient DVT prophylaxis: Subcutaneous Lovenox GI Prophylaxis: Pepcid Prognosis is guarded
[2021-03-27] MEDS ORDERED: KETOROLAC 15 MG/ML 1 ML VIAL IVP STA (18:50)
[2021-03-27] MEDS: LIDOCAINE 5% PATCH TOPICAL SCH (19:53)
[2021-03-27] MEDS: MELATONIN 5 MG TABLET PO SCH (19:54)
[2021-03-28] MEDS: guaiFENesin-DM 100-10MG/5ML 10 ML CUP PO SCH ×4 (00:22→17:45)
[2021-03-28] MEDS: SODIUM CHLORIDE 0.9% 1,000 ML IV SCH ×2 (03:17→15:42)
[2021-03-28] MEDS: ALBUTEROL HFA INHALER INHALATION SCH ×4 (07:48→21:00)
[2021-03-28] MEDS: CHOLECALCIFEROL 25 MCG (1000 IU) TABLET PO SCH (09:41)
[2021-03-28] MEDS: ASCORBIC ACID 500 MG TAB PO SCH ×2 (09:41→23:10)
[2021-03-28] MEDS: ENOXAPARIN 40 MG/0.4 ML SYRINGE SQ SCH (09:41)
[2021-03-28] MEDS: ZINC SULFATE 220 MG CAP PO SCH (09:41)
[2021-03-28] MEDS: LIDOCAINE 5% PATCH TOPICAL SCH (09:44)
[2021-03-28] MEDS: DEXAMETHASONE SOD PHOSPHATE 10 MG/ML 1 ML VIAL IV SCH (10:03)
--- NOTE | 2021-03-28 10:50 | P.PN ---
Subjective Progress Note Date: 03/28/21 03/28/2021, the patient is being seen for a follow-up again. The patient is essentially the same as yesterday. She is lethargic. She is spending most of her time in bed. She is not doing a lot of activity. The patient is comfortable. She is having dry cough. No significant sputum production. She remains on oxygen at 10 L per minute nasal cannula. Her lungs are crackling in the mid and lower lung mendoza bilaterally. Inflammatory markers have dropped. She remains on Decadron. As mentioned earlier, she was out of the window for Remdesivir treatment. The patient has no other new complaints otherwise for now. She is sleepy. She is fatigued. She spending most of her time in bed. She is to work more aggressively on her incentive spirometer. She remains on anticoagulation with Lovenox once a day. Objective - Vital Signs Vital signs: Vital Signs Temp 98.9 F 03/28/21 05:27 Pulse 87 03/28/21 05:27 Resp 18 03/28/21 05:27 BP 130/80 03/28/21 05:27 Pulse Ox 94 L 03/28/21 05:27 Intake & Output 03/27/21 03/28/21 03/28/21 18:59 06:59 18:59 Other: Voiding Method Toilet Bedside Commode # Voids 2 2 # Bowel Movements 1 - Exam Gen. appearance the patient is calm and comfortable. Nonacute distress. Currently on 7 L of oxygen by nasal cannula. Breathing is nonlabored. Head exam was generally normal. There was no scleral icterus or corneal arcus. Mucous membranes were moist. Neck was supple and without jugular venous distension, thyromegaly, or carotid bruits. Carotids were easily palpable bilaterally. There was no adenopathy. Lungs sounds are diminished in the patient's crackles in the mid and lower lung field bilaterally Heart sounds are tachycardic, positive S1-S2 and there is a systolic ejection murmur grade 2/6 heard throughout the precordium Abdominal exam revealed normal bowel sounds. The abdomen was soft, non-tender, and without masses, organomegaly, or appreciable enlargement of the abdominal aorta. Examination of the extremities revealed easily palpable radial, femoral and pedal pulses. There was no cyanosis, clubbing or edema. Examination of the skin revealed no evidence of significant rashes, suspicious appearing nevi or other concerning lesions. - Labs CBC & Chem 7: 03/26/21 13:35 03/26/21 13:35 Labs: Microbiology - Last 24 Hours (Table) 03/26/21 13:05 Blood Culture - Preliminary Blood No Growth after 24 hours 03/26/21 13:40 Blood Culture - Preliminary Blood No Growth after 24 hours Assessment and Plan Plan: 1 acute COVID-19 related pneumonia, patient is not vaccinated, presenting with 2 weeks history of symptoms with progressive dyspnea and cough and a chest x-ray clearly shows bilateral pneumonia consistent with COVID-19. Improved compared to yesterday. Receiving hydration, steroids and anticoagulation. Oxygenation is unchanged. 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 6 osteoarthritis 7 ongoing episodes of fever secondary to COVID-19, afebrile for now 8 elevated inflammatory markers secondary to COVID-19 9 sinus tachycardia probably related to fever and COVID-19 infection 10 mild lactic acidosis secondary to above Plan Continue Decadron Out the window for Remdesivir Continue Lovenox 40 mg subcu for DVT prophylaxis Monitor inflammatory markers, shows improvement Continue vitamin C and vitamin D and zinc sulfate IV fluids at the rate of 75 mL an hour of normal saline Keep oxygen 7 L and gradually wean it down Repeat labs in the morning Increase mobility and ask her to sit up on a chair Use incentive spirometer We'll continue to follow
--- NOTE | 2021-03-28 16:46 | P.PN ---
Subjective This is a pleasant 55 years old female with past medical history of CVA/TIA, osteoarthritis. She was diagnosed with Covid about 2 weeks ago when she had coughing and 7 she's been having worsening dyspnea and severe fever with generalized malaise and aches so she decided to come to emergency room. Also she complains from diarrhea every 15 minutes with no associated abdominal pain, no nausea vomiting. No chest pain. No urinary symptoms. Nonsmoker, no alcohol no illicit drugs. Abdomen vaccine 8 it against Covid before. Patient is hypoxic on admission with 6 L/m of oxygen via nasal cannula to keep saturation in the 90s. Stable. Labs including CBC, BMP and liver enzymes are unremarkable. LDH elevated 1325 and C-reactive protein elevated at 7.7. Her d-dimer was elevated 2.6 and she had CTA of the chest which was negative for PE showing bilateral pneumonia. Also showing bilateral mediastinal and hilar lymphadenopathy. Patient was started on dexamethasone, normal saline at 100 mL per hour, vitamin C, vitamin D, zinc. Lanoxin. With pulmonary consult. 03/27/2021 Patient respiratory status looks same like yesterday with no worsening. She is saturating 90s on 6 L oxygen. No fever this morning. Her diarrhea stopped D-dimer down to 1.5. LDH down to 432 and C-reactive protein down to 6.4 went she remains on dexamethasone, multiple vitamins and normal saline at 75 mL/h Repeat chest x-ray in the morning 03/28/2021 Patient is with similar tachypnea but her oxygen requirement went up to 7 L/m today compared to 6 yesterday. She's also was complaining of from low back pain and low taken patch and Toradol 1 were provided. She remains on dexamethasone, multiple vitamins and normal saline at 75 mL/h. Patient was instructed to repeat CAT scan of the chest in 3 months for bilateral lymphadenopathy. Repeat chest x-ray and inflammatory markers tomorrow. Discussed with him in 19 Objective - Vital Signs Vital signs: Vital Signs Temp 98.0 F 03/28/21 14:00 Pulse 84 03/28/21 14:00 Resp 18 03/28/21 14:00 BP 114/72 03/28/21 14:00 Pulse Ox 90 L 03/28/21 14:00 Intake & Output 03/27/21 03/28/21 03/28/21 18:59 06:59 18:59 Other: Voiding Method Toilet Bedside Commode # Voids 2 2 2 # Bowel Movements 1 - Exam GENERAL: The patient is alert and oriented x3, not in any acute distress. Well developed, well nourished. HEENT: Pupils are round and equally reacting to light. EOMI. No scleral icterus. No conjunctival pallor. Normocephalic, atraumatic. No pharyngeal erythema. No thyromegaly. CARDIOVASCULAR: S1 and S2 present. No murmurs, rubs, or gallops. -PULMONARY: Chest is clear to auscultation, no wheezing or bilateral scattered crepitation ABDOMEN: Soft, nontender, nondistended, normoactive bowel sounds. No palpable organomegaly. MUSCULOSKELETAL: No joint swelling or deformity. EXTREMITIES: No cyanosis, clubbing, or pedal edema. NEUROLOGICAL: Gross neurological examination did not reveal any focal deficits. SKIN: No rashes. no petechiae. - Labs CBC & Chem 7: 03/26/21 13:35 03/26/21 13:35 Labs: Microbiology - Last 24 Hours (Table) 03/26/21 13:05 Blood Culture - Preliminary Blood No Growth after 48 hours 03/26/21 13:40 Blood Culture - Preliminary Blood No Growth after 48 hours Assessment and Plan Assessment: Acute covid bilateral pneumonia Acute hypoxic respiratory failure bilateral mediastinal and hilar lymphadenopathy Increase inflammatory markers. Patient presents because of dyspnea and fever. History of CVA History of osteoarthritis Obesity with BMI of 31.3. Plan: This is a pleasant 55 years old female presents with Covid pneumonia. With multiple vitamins, vitamin C, vitamin D and zinc. On dexamethasone Lovenox. Pulmonary consult IV hydration. Monitor inflammatory markers and chest x-ray Repeat CT of the chest and 3 months for lymphadenopathy. Follow-up with pulmonary upon discharge. Patient informed Labs and medication were reviewed.. Continue same treatment. Continue with symptomatic treatment. Resume home medication. Monitor lytes and vitals. DVT and GI prophylaxis. Further recommendationsas per clinical course of the patient DVT prophylaxis: Subcutaneous Lovenox GI Prophylaxis: Pepcid Prognosis is guarded
[2021-03-28] MEDS: MELATONIN 5 MG TABLET PO SCH (23:10)
[2021-03-29] MEDS: SODIUM CHLORIDE 0.9% 1,000 ML IV SCH (04:07)
[2021-03-29] MEDS: ALBUTEROL HFA INHALER INHALATION SCH ×4 (07:51→20:11)
[2021-03-29] MEDS: CHOLECALCIFEROL 25 MCG (1000 IU) TABLET PO SCH (08:57)
[2021-03-29] MEDS: DEXAMETHASONE SOD PHOSPHATE 10 MG/ML 1 ML VIAL IV SCH (08:57)
[2021-03-29] MEDS: ZINC SULFATE 220 MG CAP PO SCH (08:57)
[2021-03-29] MEDS: ASCORBIC ACID 500 MG TAB PO SCH ×2 (08:57→21:17)
[2021-03-29] MEDS: ENOXAPARIN 40 MG/0.4 ML SYRINGE SQ SCH (08:57)
[2021-03-29 11:54] LABS: African American GFR (CKD) 111.5 (60.0-200.0); Anion Gap 13.9 mmol/L (4.00-12.00); BUN/Creat Ratio 26.71 Ratio (12.00-20.00); Blood Urea Nitrogen 18.7 mg/dL (9.0-27.0); C Reactive Protein 2.8 mg/dL (0.00-0.80); Calcium 8.6 mg/dL (8.7-10.3); Carbon Dioxide 22.1 mmol/L (21.6-31.8); Non-African American GFR(CKD) 96.2 (60.0-200.0); Potassium 3.9 mmol/L (3.5-5.5)
[2021-03-29] MEDS: LIDOCAINE 5% PATCH TOPICAL SCH (12:42)
--- NOTE | 2021-03-29 15:15 | P.PN ---
Subjective Progress Note Date: 03/29/21 Principal diagnosis: Acute COVID-19 pneumonia On 03/29/2021 patient seen in follow-up on medical surgical floor. She is currently on 7 L of oxygen, her pulse ox is 90-91%, she looks weak, but does not look in any distress, does not appear to be dyspneic, occasional cough, no c omplaints of chest discomfort. No use of accessory muscles of breathing. Last chest x-ray from 03/27/2021 showed scattered interstitial infiltrates, stable chest. No fever or chills, the rest of vitals were stable, no acute events overnight, her d-dimer is relatively stable. LDH is 426, relatively stable, and CRP is improved and is down to 2.80, Procan SR level is negative at 0.17. Patient remains on Decadron 6 mg daily, Lovenox 40 mg daily, and multivitamins. CTA chest showed bilateral COVID pneumonia, there was breathing motion artifact, however no definite to visualize pulmonary embolus was identified. There was mediastinal and bilateral hilar lymphadenopathy measuring up to 2.0 cm possibly reactive Objective - Vital Signs Vital signs: Vital Signs Temp 98.3 F 03/29/21 06:18 Pulse 73 03/29/21 07:25 Resp 19 03/29/21 07:25 BP 126/76 03/29/21 06:18 Pulse Ox 90 L 03/29/21 06:18 Intake & Output 03/28/21 03/29/21 03/29/21 18:59 06:59 18:59 Other: Voiding Method Toilet Bedside Commode # Voids 2 1 1 - Exam GENERAL EXAM: Alert, very pleasant, 55-year-old white female, on 5 L of oxygen the pulse ox of 90-94%, appears weak, but appears to be in no acute distress comfortable in no apparent distress. HEAD: Normocephalic/atraumatic. EYES: Normal reaction of pupils, equal size. Conjunctiva pink, sclera white. NOSE: Clear with pink turbinates. THROAT: No erythema or exudates. NECK: No masses, no JVD, no thyroid enlargement, no adenopathy. CHEST: No chest wall deformity. Symmetrical expansion. LUNGS: Equal air entry with bilateral crackles CVS: Regular rate and rhythm, normal S1 and S2, no gallops, no murmurs, no rubs ABDOMEN: Soft, nontender. No hepatosplenomegaly, normal bowel sounds, no guarding or rigidity. EXTREMITIES: No clubbing, no edema, no cyanosis, 2+ pulses and upper and lower extremities. MUSCULOSKELETAL: Muscle strength and tone normal. SPINE: No scoliosis or deformity SKIN: No rashes CENTRAL NERVOUS SYSTEM: Alert and oriented -3. No focal deficits, tone is normal in all 4 extremities. PSYCHIATRIC: Alert and oriented -3. Appropriate affect. Intact judgment and insight. - Labs CBC & Chem 7: 03/26/21 13:35 03/29/21 06:45 Labs: Abnormal Lab Results - Last 24 Hours (Table) 03/29/21 03/29/21 03/29/21 Range/Units 06:45 06:45 06:45 D-Dimer 1.86 H (<0.60) mg/L FEU Anion Gap 13.90 H (4.00-12.00) mmol/L BUN/Creatinine Ratio 26.71 H (12.00-20.00) Ratio Glucose 154 H (70-110) mg/dL Calcium 8.6 L (8.7-10.3) mg/dL Lactate Dehydrogenase 426 H (120-246) U/L C-Reactive Protein 2.80 H (0.00-0.80) mg/dL Procalcitonin 0.17 H (0.02-0.09) ng/mL Microbiology - Last 24 Hours (Table) 03/26/21 13:05 Blood Culture - Preliminary Blood No Growth after 48 hours 03/26/21 13:40 Blood Culture - Preliminary Blood No Growth after 48 hours Assessment and Plan Plan: Assessment: #1. Acute COVID-19 related pneumonia, patient is a non-vaccinated individual, presented with 2 week history of symptoms of progressive dyspnea and cough. Currently on Decadron, anticoagulation in the form of Lovenox, and IV hydration. Currently on 7 L of oxygen #2. Acute hypoxic respiratory failure secondary to the above, currently on 7 L #3. Shortness of breath and cough secondary to the above, unchanged, #4. Elevated inflammatory markers related to viral pneumonia, improving #5. Previous history of CVA with intracerebral artery coiling, possibly a [employer]RI[employer]UC[employer] bleed/aneurysmal #6. Ongoing episodes of fever related to COVID-19, afebrile right now #8. Sinus tachycardia related to fever COVID-19 infection, improved, heart rate is controlled now #9. Mild lactic acidosis secondary to the above Plan: Continue Decadron Continue Lovenox Inflammatory markers are improving Renal function improved Provide incentive spirometer, is chocked on use Encouraged patient to sit up in the chair, reposition self in bed Follow-up labs including inflammatory markers, chest x-ray in the morning I performed a history & physical examination of the patient and discussed their management with my nurse practitioner, Sandra Ambriz. I reviewed the nurse practitioner's note and agree with the documented findings and plan of care. Lung sounds are positive fordiffuse crackles throughout the lung mendoza. The findings and the impression was discussed with the patient. I attest to the documentation by the nurse practitioner. Time with Patient: Less than 30
[2021-03-29] MEDS: MELATONIN 5 MG TABLET PO SCH (21:17)
--- NOTE | 2021-03-30 00:07 | P.PN ---
Subjective Progress Note Date: 03/29/21 This is a pleasant 55 years old female with past medical history of CVA/TIA, osteoarthritis. She was diagnosed with Covid about 2 weeks ago when she had coughing and 7 she's been having worsening dyspnea and severe fever with generalized malaise and aches so she decided to come to emergency room. Also she complains from diarrhea every 15 minutes with no associated abdominal pain, no nausea vomiting. No chest pain. No urinary symptoms. Nonsmoker, no alcohol no illicit drugs. Abdomen vaccine 8 it against Covid before. Patient is hypoxic on admission with 6 L/m of oxygen via nasal cannula to keep s aturation in the 90s. Stable. Labs including CBC, BMP and liver enzymes are unremarkable. LDH elevated 1325 and C-reactive protein elevated at 7.7. Her d-dimer was elevated 2.6 and she had CTA of the chest which was negative for PE showing bilateral pneumonia. Also showing bilateral mediastinal and hilar lymphadenopathy. Patient was started on dexamethasone, normal saline at 100 mL per hour, vitamin C, vitamin D, zinc. Lanoxin. With pulmonary consult. 03/27/2021 Patient respiratory status looks same like yesterday with no worsening. She is saturating 90s on 6 L oxygen. No fever this morning. Her diarrhea stopped D-dimer down to 1.5. LDH down to 432 and C-reactive protein down to 6.4 went she remains on dexamethasone, multiple vitamins and normal saline at 75 mL/h Repeat chest x-ray in the morning 03/28/2021 Patient is with similar tachypnea but her oxygen requirement went up to 7 L/m today compared to 6 yesterday. She's also was complaining of from low back pain and low taken patch and Toradol 1 were provided. She remains on dexamethasone, multiple vitamins and normal saline at 75 mL/h. Patient was instructed to repeat CAT scan of the chest in 3 months for bilateral lymphadenopathy. Repeat chest x-ray and inflammatory markers tomorrow. Discussed with him in 03/29/2021 Patient seen and evaluated in follow up this morning continues on 7 L high flow via nasal cannula and stating she feels somewhat improved. Patient continues on IV dexamethasone along with vitamin C and zinc supplements, Lovenox, and albuterol and will continue. Inflammatory markers trending down and D dimer slightly elevated and will repeat labs and chest x-ray in the morning. Pulmonary is following closely. Will discontinue IV fluids as patient is tolerating diet with no reports of nausea or vomiting and diarrhea has subsided. Labs: D-dimer is 1.86, pro-calcitonin is 0.17, LDH is 426, crp is 2.8 Review of systems: Constitutional: reports of fatigue, no reports of fever, or chills Cardiovascular: No reports of chest pain or palpitations Respiratory: No reports of worsening shortness of breath but continues with cough and shortness of breath with exertion GI: No reports of nausea, vomiting, diarrhea improved : No reports of dysuria or retention Neurovascular: reports generalized weakness All medications have been reviewed Active Medications Acetaminophen (Acetaminophen Tab 500 Mg Tab) 1,000 mg PO Q6HR PRN PRN Reason: Fever>101 Last Admin: 03/27/21 13:37 Dose: 1,000 mg Documented by: Albuterol Sulfate (Albuterol Hfa Inhaler) 2 puff INHALATION RT-Q6H PRN PRN Reason: Shortness Of Breath Or Wheezing Albuterol Sulfate (Albuterol Hfa Inhaler) 2 puff INHALATION RT-QID [facility] Last Admin: 03/29/21 11:49 Dose: 2 puff Documented by: Ascorbic Acid (Ascorbic Acid 500 Mg Tab) 500 mg PO BID [facility] Last Admin: 03/29/21 08:57 Dose: 500 mg Documented by: Cholecalciferol (Cholecalciferol 25 Mcg (1000 Iu) Tablet) 125 mcg PO DAILY [facility] Last Admin: 03/29/21 08:57 Dose: 125 mcg Documented by: Dexamethasone Sodium Phosphate (Dexamethasone Sod Phosphate 10 Mg/Ml 1 Ml Vial) 6 mg IV DAILY [facility] Stop: 04/04/21 09:01 Last Admin: 03/29/21 08:57 Dose: 6 mg Documented by: Enoxaparin Sodium (Enoxaparin 40 Mg/0.4 Ml Syringe) 40 mg SQ DAILY [facility] Last Admin: 03/29/21 08:57 Dose: 40 mg Documented by: Sodium Chloride (Saline 0.9%) 1,000 mls @ 75 mls/hr IV .[id number] [facility] Last Admin: 03/29/21 04:07 Dose: Not Given Documented by: Lidocaine (Lidocaine 5% Patch) 1 patch TOPICAL DAILY [facility]; Protocol Last Admin: 03/29/21 12:42 Dose: Not Given Documented by: Melatonin (Melatonin 5 Mg Tablet) 5 mg PO HS [facility] Last Admin: 03/28/21 23:10 Dose: 5 mg Documented by: Naloxone HCl (Naloxone 0.4 Mg/Ml 1 Ml Vial) 0.2 mg IV Q2M PRN PRN Reason: Opioid Reversal Zinc Sulfate (Zinc Sulfate 220 Mg Cap) 220 mg PO DAILY [facility] Last Admin: 03/29/21 08:57 Dose: 220 mg Documented by: Physical exam: GENERAL: The patient is alert and oriented x3, not in any acute distress. Well developed, well nourished. HEENT: Pupils are round and equally reacting to light. EOMI. No scleral icterus. No conjunctival pallor. Normocephalic, atraumatic. No pharyngeal erythema. No thyromegaly. CARDIOVASCULAR: S1 and S2 present. No murmurs, rubs, or gallops. PULMONARY: diminished breath sounds bilaterally, no wheezing or crackles noted. Diffuse bilateral rhonchi noted at the bases with cough exhibited on deep inhalation ABDOMEN: Soft, nontender, nondistended, normoactive bowel sounds. No palpable organomegaly. MUSCULOSKELETAL: No joint swelling or deformity. EXTREMITIES: No cyanosis, clubbing, or pedal edema. NEUROLOGICAL: Gross neurological examination did not reveal any focal deficits. SKIN: No rashes. no petechiae. Assessment: Acute covid 19 interstitial bilateral pneumonia Acute hypoxic respiratory failure secondary to above bilateral mediastinal and hilar lymphadenopathy Increased inflammatory markers. dyspnea and fever, on admission History of CVA History of osteoarthritis Obesity with BMI of 31.3. GI prophylaxis DVT prophylaxis Plan: Recommend to continue current medications and management. Pulmonary following closely and will repeat labs along with x-ray. Patient has continued on IV dexamethasone along with vitamin and zinc supplements, subcutaneous Lovenox and will continue. Continue with sliding scale as needed and will repeat labs in the morning. Encouraged increased activity as tolerated and continued incentives spirometer use at least 10 times every hour while awake. Patient currently maintained on 7 L of high flow oxygen via nasal cannula and discussed with nursing staff about weaning FiO2 as tolerated. Objective - Vital Signs Vital signs: Vital Signs Temp 98.3 F 03/29/21 06:18 Pulse 73 03/29/21 07:25 Resp 19 03/29/21 07:25 BP 126/76 03/29/21 06:18 Pulse Ox 90 L 03/29/21 06:18 Intake & Output 03/28/21 03/29/21 03/29/21 18:59 06:59 18:59 Other: Voiding Method Toilet Bedside Commode # Voids 2 1 1 - Labs CBC & Chem 7: 03/26/21 13:35 03/29/21 06:45 Labs: Abnormal Lab Results - Last 24 Hours (Table) 03/29/21 Range/Units 06:45 D-Dimer 1.86 H (<0.60) mg/L FEU Microbiology - Last 24 Hours (Table) 03/26/21 13:05 Blood Culture - Preliminary Blood No Growth after 48 hours 03/26/21 13:40 Blood Culture - Preliminary Blood No Growth after 48 hours
[2021-03-30] MEDS: SODIUM CHLORIDE 0.9% 1,000 ML IV SCH (04:05)
[2021-03-30] MEDS: ALBUTEROL HFA INHALER INHALATION SCH ×4 (07:59→21:14)
[2021-03-30] MEDS: ENOXAPARIN 40 MG/0.4 ML SYRINGE SQ SCH ×2 (09:14→22:03)
[2021-03-30] MEDS: ASCORBIC ACID 500 MG TAB PO SCH ×2 (09:14→22:03)
[2021-03-30] MEDS: LIDOCAINE 5% PATCH TOPICAL SCH (09:14)
[2021-03-30] MEDS: DEXAMETHASONE SOD PHOSPHATE 10 MG/ML 1 ML VIAL IV SCH (09:14)
[2021-03-30] MEDS: CHOLECALCIFEROL 25 MCG (1000 IU) TABLET PO SCH (09:14)
[2021-03-30] MEDS: ZINC SULFATE 220 MG CAP PO SCH (09:14)
--- NOTE | 2021-03-30 09:54 | XR ---
EXAMINATION TYPE: XR chest 1V portable DATE OF EXAM: 03/30/2021 COMPARISON: Chest x-ray 03/27/2021 HISTORY: Covid pneumonia TECHNIQUE: Single frontal view of the chest is obtained. FINDINGS: Findings are similar to prior exam. IMPRESSION: Findings consistent with patient's history of Covid pneumonia
[2021-03-30 10:12] LABS: Basophils % (A) 0 %; Eosinophils % (A) 0 %; HCT 34.7 % (34.0-46.0); HGB 11.4 gm/dL (11.4-16.0); Lymphocytes # (A) 1.7 k/uL (1.0-4.8); Lymphocytes % (A) 25 %; MCH 30.2 pg (25.0-35.0); MCHC 32.8 g/dL (31.0-37.0); MCV 92.2 fL (80.0-100.0); Mean Platelet Volume 8.8; Monocytes # (A) 0.4 k/uL (0-1.0); Monocytes % (A) 6 %; Neutrophils # (A) 4.5 k/uL (1.3-7.7); Neutrophils % (A) 65 %; Platelet Count 352 k/uL (150-450); RBC 3.77 m/uL (3.80-5.40); RDW 13.4 % (11.5-15.5)
[2021-03-30 10:17] LABS: African American GFR (CKD) >90 (>60 ml/min/1.73 sqM); Anion Gap 7 mmol/L; Blood Urea Nitrogen 22 mg/dL (7-17); C Reactive Protein 2.2 mg/dL (<1.0); Calcium 8.7 mg/dL (8.4-10.2); Carbon Dioxide 25 mmol/L (22-30); Chloride 106 mmol/L (98-107); Glucose 134 mg/dL (74-99); Non-African American GFR(CKD) >90 (>60 ml/min/1.73 sqM); Potassium 3.6 mmol/L (3.5-5.1); Sodium 138 mmol/L (137-145)
--- NOTE | 2021-03-30 14:57 | P.PN ---
Subjective Progress Note Date: 03/30/21 Principal diagnosis: Acute COVID-19 pneumonia On 03/29/2021 patient seen in follow-up on medical surgical floor. She is currently on 7 L of oxygen, her pulse ox is 90-91%, she looks weak, but does not look in any distress, does not appear to be dyspneic, occasional cough, no c omplaints of chest discomfort. No use of accessory muscles of breathing. Last chest x-ray from 03/27/2021 showed scattered interstitial infiltrates, stable chest. No fever or chills, the rest of vitals were stable, no acute events overnight, her d-dimer is relatively stable. LDH is 426, relatively stable, and CRP is improved and is down to 2.80, Procan SR level is negative at 0.17. Patient remains on Decadron 6 mg daily, Lovenox 40 mg daily, and multivitamins. CTA chest showed bilateral COVID pneumonia, there was breathing motion artifact, however no definite to visualize pulmonary embolus was identified. There was mediastinal and bilateral hilar lymphadenopathy measuring up to 2.0 cm possibly reactive On 03/30/2021 patient seen in follow-up on medical surgical floor. Patient is t immanuel down to 6 L of oxygen, breathing comfortably, her pulse ox is 93%, she is afebrile, vital signs have been stable, she is sitting up on the edge the bed, she sounds improved on physical exam, less short of breath, and overall seems to be a bit more energetic and stronger. follow up chest x-ray today showing findings consistent with patient's history of COVID pneumonia. Today's labs have been reviewed, d-dimer is 2.0, CBC showed white blood cell count of 7.0, hemoglobin of 11.4, electrolytes are within normal limits, BUN is 22 and creatinine 0.71, LDH is on the rise, and is up to 877 on today's labs, and CRP is 2.2, improved from admission. Pro-calcitonin level is negative at 0.17. She continues on Decadron 6 mg daily, COVID-19 vitamins, and prophylactic Lovenox. CTA chest had breathing motion artifact but no definite evidence of pulmonary embolism. Objective - Vital Signs Vital signs: Vital Signs Temp 97.6 F 03/30/21 14:00 Pulse 98 03/30/21 14:00 Resp 16 03/30/21 14:00 BP 108/70 03/30/21 14:00 Pulse Ox 93 L 03/30/21 14:00 Intake & Output 03/29/21 03/30/21 03/30/21 18:59 06:59 18:59 Intake Total 625 472 Balance 625 472 Intake: Intake, IV Titration 150 Amount Sodium Chloride 0.9% 1, 150 000 ml @ 75 mls/hr IV . [id number] [facility] Rx#:[id number] Oral 475 472 Other: Voiding Method Toilet Toilet Bedside Commode Bedside Commode # Voids 3 3 1 - Exam GENERAL EXAM: Alert, very pleasant, 55-year-old white female, on 6 L of oxygen the pulse ox of 93-94%, appears weak, but appears to be in no acute distress comfortable in no apparent distress. HEAD: Normocephalic/atraumatic. EYES: Normal reaction of pupils, equal size. Conjunctiva pink, sclera white. NOSE: Clear with pink turbinates. THROAT: No erythema or exudates. NECK: No masses, no JVD, no thyroid enlargement, no adenopathy. CHEST: No chest wall deformity. Symmetrical expansion. LUNGS: Equal air entry with bilateral crackles CVS: Regular rate and rhythm, normal S1 and S2, no gallops, no murmurs, no rubs ABDOMEN: Soft, nontender. No hepatosplenomegaly, normal bowel sounds, no guarding or rigidity. EXTREMITIES: No clubbing, no edema, no cyanosis, 2+ pulses and upper and lower extremities. MUSCULOSKELETAL: Muscle strength and tone normal. SPINE: No scoliosis or deformity SKIN: No rashes CENTRAL NERVOUS SYSTEM: Alert and oriented -3. No focal deficits, tone is normal in all 4 extremities. PSYCHIATRIC: Alert and oriented -3. Appropriate affect. Intact judgment and insight. - Labs CBC & Chem 7: 03/30/21 09:07 03/30/21 09:07 Labs: Abnormal Lab Results - Last 24 Hours (Table) 03/30/21 03/30/21 03/30/21 Range/Units 09:07 09:07 09:07 RBC 3.77 L (3.80-5.40) m/uL D-Dimer 2.00 H (<0.60) mg/L FEU BUN (7-17) mg/dL Glucose (74-99) mg/dL Lactate Dehydrogenase 877 H (313-618) U/L C-Reactive Protein 2.2 H (<1.0) mg/dL 03/30/21 Range/Units 09:07 RBC (3.80-5.40) m/uL D-Dimer (<0.60) mg/L FEU BUN 22 H (7-17) mg/dL Glucose 134 H (74-99) mg/dL Lactate Dehydrogenase (313-618) U/L C-Reactive Protein (<1.0) mg/dL Microbiology - Last 24 Hours (Table) 03/26/21 13:05 Blood Culture - Preliminary Blood No Growth after 72 hours 03/26/21 13:40 Blood Culture - Preliminary Blood No Growth after 72 hours Assessment and Plan Plan: Assessment: #1. Acute COVID-19 related pneumonia, patient is a non-vaccinated individual, presented with 2 week history of symptoms of progressive dyspnea and cough. Currently on Decadron, anticoagulation in the form of Lovenox, and IV hydration. Currently on 6 L of oxygen #2. Acute hypoxic respiratory failure secondary to the above, currently on 7 L #3. Shortness of breath and cough secondary to the above, unchanged, #4. Elevated inflammatory markers related to viral pneumonia, improving #5. Previous history of CVA with intracerebral artery coiling, possibly a [employer] bleed/aneurysmal #6. Ongoing episodes of fever related to COVID-19, afebrile right now #8. Sinus tachycardia related to fever COVID-19 infection, improved, heart rate is controlled now #9. Mild lactic acidosis secondary to the above Plan: Clinically patient seems to be improving FiO2 is currently down to 6 L, continue weaning to keep O2 sats at or above 90% Continue Decadron Continue Lovenox Encouraged patient to sit up in the chair, use incentive spirometer Follow-up chest x-ray and inflammatory markers and labs have been reviewed Continue current medical treatment I performed a history & physical examination of the patient and discussed their management with my nurse practitioner, Sandra Ambriz. I reviewed the nurse practitioner's note and agree with the documented findings and plan of care. Lung sounds are positive fordiffuse crackles throughout the lung mendoza. The findings and the impression was discussed with the patient. I attest to the documentation by the nurse practitioner. Time with Patient: Less than 30
--- NOTE | 2021-03-30 16:05 | P.PN ---
Subjective Progress Note Date: 03/30/21 This is a pleasant 55 years old female with past medical history of CVA/TIA, osteoarthritis. She was diagnosed with Covid about 2 weeks ago when she had coughing and 7 she's been having worsening dyspnea and severe fever with generalized malaise and aches so she decided to come to emergency room. Also she complains from diarrhea every 15 minutes with no associated abdominal pain, no nausea vomiting. No chest pain. No urinary symptoms. Nonsmoker, no alcohol no illicit drugs. Abdomen vaccine 8 it against Covid before. Patient is hypoxic on admission with 6 L/m of oxygen via nasal cannula to keep s aturation in the 90s. Stable. Labs including CBC, BMP and liver enzymes are unremarkable. LDH elevated 1325 and C-reactive protein elevated at 7.7. Her d-dimer was elevated 2.6 and she had CTA of the chest which was negative for PE showing bilateral pneumonia. Also showing bilateral mediastinal and hilar lymphadenopathy. Patient was started on dexamethasone, normal saline at 100 mL per hour, vitamin C, vitamin D, zinc. Lanoxin. With pulmonary consult. 03/27/2021 Patient respiratory status looks same like yesterday with no worsening. She is saturating 90s on 6 L oxygen. No fever this morning. Her diarrhea stopped D-dimer down to 1.5. LDH down to 432 and C-reactive protein down to 6.4 went she remains on dexamethasone, multiple vitamins and normal saline at 75 mL/h Repeat chest x-ray in the morning 03/28/2021 Patient is with similar tachypnea but her oxygen requirement went up to 7 L/m today compared to 6 yesterday. She's also was complaining of from low back pain and low taken patch and Toradol 1 were provided. She remains on dexamethasone, multiple vitamins and normal saline at 75 mL/h. Patient was instructed to repeat CAT scan of the chest in 3 months for bilateral lymphadenopathy. Repeat chest x-ray and inflammatory markers tomorrow. Discussed with him in 03/29/2021 Patient seen and evaluated in follow up this morning continues on 7 L high flow via nasal cannula and stating she feels somewhat improved. Patient continues on IV dexamethasone along with vitamin C and zinc supplements, Lovenox, and albuterol and will continue. Inflammatory markers trending down and D dimer slightly elevated and will repeat labs and chest x-ray in the morning. Pulmonary is following closely. Will discontinue IV fluids as patient is tolerating diet with no reports of nausea or vomiting and diarrhea has subsided. 03/30/2021 Patient is seen this morning currently at 6 L high flow nasal cannula and tolerating with oxygen saturations above 90%. Katina is following and patient is maintained on inhalers along with IV dexamethasone, Lovenox, vitamin, and zinc supplements. D-dimer is elevated at 2.0 and will increase Lovenox to twice daily. Patient is afebrile. Per nursing staff patient is not up and moving around very much and does have history of chronic back pain. Chest x-ray today shows findings consistent with patient's history of Covid pneumonia. Labs: D-dimer is 2.0, sodium is 138, potassium is 3.6, current creatinine is 0.71, LDH is increased at 877, crp is 2.2, white blood count is 7.0 and hemoglobin is 11.4. Review of systems: Constitutional: reports of fatigue, no reports of fever, or chills Cardiovascular: No reports of chest pain or palpitations Respiratory: No reports of worsening shortness of breath but continues with cough and shortness of breath with exertion GI: No reports of nausea, vomiting, diarrhea improved : No reports of dysuria or retention Neurovascular: reports generalized weakness and back pain All medications have been reviewed Active Medications Acetaminophen (Acetaminophen Tab 500 Mg Tab) 1,000 mg PO Q6HR PRN PRN Reason: Fever>101 Last Admin: 03/27/21 13:37 Dose: 1,000 mg Documented by: Albuterol Sulfate (Albuterol Hfa Inhaler) 2 puff INHALATION RT-Q6H PRN PRN Reason: Shortness Of Breath Or Wheezing Albuterol Sulfate (Albuterol Hfa Inhaler) 2 puff INHALATION RT-QID COUNTS INCLUDE 234 BEDS AT THE [facility] Last Admin: 03/30/21 11:17 Dose: 2 puff Documented by: Ascorbic Acid (Ascorbic Acid 500 Mg Tab) 500 mg PO BID COUNTS INCLUDE 234 BEDS AT THE [facility] Last Admin: 03/30/21 09:14 Dose: 500 mg Documented by: Cholecalciferol (Cholecalciferol 25 Mcg (1000 Iu) Tablet) 125 mcg PO DAILY COUNTS INCLUDE 234 BEDS AT THE [facility] Last Admin: 03/30/21 09:14 Dose: 125 mcg Documented by: Dexamethasone Sodium Phosphate (Dexamethasone Sod Phosphate 10 Mg/Ml 1 Ml Vial) 6 mg IV DAILY COUNTS INCLUDE 234 BEDS AT THE [facility] Stop: 04/04/21 09:01 Last Admin: 03/30/21 09:14 Dose: 6 mg Documented by: Enoxaparin Sodium (Enoxaparin 40 Mg/0.4 Ml Syringe) 40 mg SQ BID COUNTS INCLUDE 234 BEDS AT THE [facility] Lidocaine (Lidocaine 5% Patch) 1 patch TOPICAL DAILY COUNTS INCLUDE 234 BEDS AT THE [facility]; Protocol Last Admin: 03/30/21 09:14 Dose: Not Given Documented by: Melatonin (Melatonin 5 Mg Tablet) 5 mg PO HS COUNTS INCLUDE 234 BEDS AT THE [facility] Last Admin: 03/29/21 21:17 Dose: 5 mg Documented by: Naloxone HCl (Naloxone 0.4 Mg/Ml 1 Ml Vial) 0.2 mg IV Q2M PRN PRN Reason: Opioid Reversal Zinc Sulfate (Zinc Sulfate 220 Mg Cap) 220 mg PO DAILY COUNTS INCLUDE 234 BEDS AT THE [facility] Last Admin: 03/30/21 09:14 Dose: 220 mg Documented by: Physical exam: GENERAL: The patient is alert and oriented x3, not in any acute distress. Well developed, well nourished. HEENT: Pupils are round and equally reacting to light. EOMI. No scleral icterus. No conjunctival pallor. Normocephalic, atraumatic. No pharyngeal erythema. No th yromegaly. CARDIOVASCULAR: S1 and S2 present. No murmurs, rubs, or gallops. PULMONARY: diminished breath sounds bilaterally, no wheezing or crackles noted. Diffuse bilateral rhonchi noted at the bases with cough exhibited on deep inhalation ABDOMEN: Soft, nontender, nondistended, normoactive bowel sounds. No palpable organomegaly. MUSCULOSKELETAL: No joint swelling or deformity. EXTREMITIES: No cyanosis, clubbing, or pedal edema. NEUROLOGICAL: Gross neurological examination did not reveal any focal deficits. SKIN: No rashes. no petechiae. Assessment: Acute covid 19 interstitial bilateral pneumonia Acute hypoxic respiratory failure secondary to above bilateral mediastinal and hilar lymphadenopathy Increased inflammatory markers. dyspnea and fever, on admission History of CVA History of osteoarthritis Obesity with BMI of 31.3. GI prophylaxis DVT prophylaxis Plan: Recommend to continue current medications and management. Pulmonary following closely. Patient has continued on IV dexamethasone along with vitamin and zinc supplements, subcutaneous Lovenox and will continue. D-dimer mildly elevated at 2 and will increase Lovenox to twice daily. Will add sliding scale as needed if blood sugars continue to rise and will repeat labs in the morning. Encouraged increased activity as tolerated and continued incentives spirometer use at least 10 times every hour while awake. Patient currently maintained on 6 L of high flow oxygen via nasal cannula and discussed with nursing staff about weaning FiO2 as tolerated. If patient continues with pulse ox above 90% and tolerating 4-5 L via nasal cannula will discuss with pulmonary about discharging patient and will likely require oxygen secondary to Covid 19 pneumonia. Will discuss with case management. Objective - Vital Signs Vital signs: Vital Signs Temp 97.9 F 03/30/21 05:26 Pulse 50 L 03/30/21 07:25 Resp 18 03/30/21 07:25 BP 121/76 03/30/21 05:26 Pulse Ox 92 L 03/30/21 05:26 Intake & Output 03/29/21 03/30/21 03/30/21 18:59 06:59 18:59 Intake Total 625 236 Balance 625 236 Intake: Intake, IV Titration 150 Amount Sodium Chloride 0.9% 1, 150 000 ml @ 75 mls/hr IV . [id number] COUNTS INCLUDE 234 BEDS AT THE [facility] Rx#:[id number] Oral 475 236 Other: Voiding Method Toilet Toilet Bedside Commode Bedside Commode # Voids 3 3 1 - Labs CBC & Chem 7: 03/30/21 09:07 03/30/21 09:07 Labs: Abnormal Lab Results - Last 24 Hours (Table) 03/29/21 03/29/21 Range/Units 06:45 06:45 Anion Gap 13.90 H (4.00-12.00) mmol/L BUN/Creatinine Ratio 26.71 H (12.00-20.00) Ratio Glucose 154 H (70-110) mg/dL Calcium 8.6 L (8.7-10.3) mg/dL Lactate Dehydrogenase 426 H (120-246) U/L C-Reactive Protein 2.80 H (0.00-0.80) mg/dL Procalcitonin 0.17 H (0.02-0.09) ng/mL Microbiology - Last 24 Hours (Table) 03/26/21 13:05 Blood Culture - Preliminary Blood No Growth after 72 hours 03/26/21 13:40 Blood Culture - Preliminary Blood No Growth after 72 hours
[2021-03-30] MEDS: MELATONIN 5 MG TABLET PO SCH (22:03)
[2021-03-31] MEDS: ASCORBIC ACID 500 MG TAB PO SCH ×2 (08:17→20:22)
[2021-03-31] MEDS: ENOXAPARIN 40 MG/0.4 ML SYRINGE SQ SCH ×2 (08:17→20:23)
[2021-03-31] MEDS: ZINC SULFATE 220 MG CAP PO SCH (08:17)
[2021-03-31] MEDS: CHOLECALCIFEROL 25 MCG (1000 IU) TABLET PO SCH (08:17)
[2021-03-31] MEDS: DEXAMETHASONE SOD PHOSPHATE 10 MG/ML 1 ML VIAL IV SCH (08:17)
[2021-03-31] MEDS: ALBUTEROL HFA INHALER INHALATION SCH ×4 (08:24→21:27)
[2021-03-31] MEDS: LIDOCAINE 5% PATCH TOPICAL SCH (10:54)
--- NOTE | 2021-03-31 13:46 | P.PN ---
Subjective Progress Note Date: 03/31/21 Principal diagnosis: Acute COVID-19 pneumonia On 03/29/2021 patient seen in follow-up on medical surgical floor. She is currently on 7 L of oxygen, her pulse ox is 90-91%, she looks weak, but does not look in any distress, does not appear to be dyspneic, occasional cough, no c omplaints of chest discomfort. No use of accessory muscles of breathing. Last chest x-ray from 03/27/2021 showed scattered interstitial infiltrates, stable chest. No fever or chills, the rest of vitals were stable, no acute events overnight, her d-dimer is relatively stable. LDH is 426, relatively stable, and CRP is improved and is down to 2.80, Procan SR level is negative at 0.17. Patient remains on Decadron 6 mg daily, Lovenox 40 mg daily, and multivitamins. CTA chest showed bilateral COVID pneumonia, there was breathing motion artifact, however no definite to visualize pulmonary embolus was identified. There was mediastinal and bilateral hilar lymphadenopathy measuring up to 2.0 cm possibly reactive On 03/30/2021 patient seen in follow-up on medical surgical floor. Patient is t immanuel down to 6 L of oxygen, breathing comfortably, her pulse ox is 93%, she is afebrile, vital signs have been stable, she is sitting up on the edge the bed, she sounds improved on physical exam, less short of breath, and overall seems to be a bit more energetic and stronger. follow up chest x-ray today showing findings consistent with patient's history of COVID pneumonia. Today's labs have been reviewed, d-dimer is 2.0, CBC showed white blood cell count of 7.0, hemoglobin of 11.4, electrolytes are within normal limits, BUN is 22 and creatinine 0.71, LDH is on the rise, and is up to 877 on today's labs, and CRP is 2.2, improved from admission. Pro-calcitonin level is negative at 0.17. She continues on Decadron 6 mg daily, COVID-19 vitamins, and prophylactic Lovenox. CTA chest had breathing motion artifact but no definite evidence of pulmonary embolism. On 03/31/2021 patient seen in follow-up. She is currently on 6 L of oxygen pulse ox is 94%, she is breathing comfortable, no chest pain, no worsening dyspnea, she is sitting up in bed, does not appear to be in any acute distress, FiO2 was cut back to 4 L. Vital signs have been stable, no fever or chills, no acute events overnight, occasional cough, exertional dyspnea, but overall she states she is feeling better. No new chest x-ray, no new labs. Follow-up labs pending for tomorrow, she continues on Decadron 6 blood gram daily, COVID-19 vitamins, and prophylactic dose Lovenox. Her appetite is fair, no nausea vomiting diarrhea, Objective - Vital Signs Vital signs: Vital Signs Temp 97.7 F 03/31/21 10:25 Pulse 66 03/31/21 10:25 Resp 16 03/31/21 10:25 BP 102/62 03/31/21 10:25 Pulse Ox 94 L 03/31/21 10:25 Intake & Output 03/30/21 03/31/21 03/31/21 18:59 06:59 18:59 Intake Total 708 300 236 Balance 708 300 236 Intake: Oral 708 300 236 Other: Voiding Method Toilet Toilet Bedside Commode Bedside Commode # Voids 1 1 - Exam GENERAL EXAM: Alert, very pleasant, 55-year-old white female, on 6 L of oxygen the pulse ox of 93-94%, appears weak, but appears to be in no acute distress comfortable in no apparent distress. HEAD: Normocephalic/atraumatic. EYES: Normal reaction of pupils, equal size. Conjunctiva pink, sclera white. NOSE: Clear with pink turbinates. THROAT: No erythema or exudates. NECK: No masses, no JVD, no thyroid enlargement, no adenopathy. CHEST: No chest wall deformity. Symmetrical expansion. LUNGS: Equal air entry with bilateral crackles CVS: Regular rate and rhythm, normal S1 and S2, no gallops, no murmurs, no rubs ABDOMEN: Soft, nontender. No hepatosplenomegaly, normal bowel sounds, no guarding or rigidity. EXTREMITIES: No clubbing, no edema, no cyanosis, 2+ pulses and upper and lower extremities. MUSCULOSKELETAL: Muscle strength and tone normal. SPINE: No scoliosis or deformity SKIN: No rashes CENTRAL NERVOUS SYSTEM: Alert and oriented -3. No focal deficits, tone is normal in all 4 extremities. PSYCHIATRIC: Alert and oriented -3. Appropriate affect. Intact judgment and insight. - Labs CBC & Chem 7: 03/30/21 09:07 03/30/21 09:07 Labs: Microbiology - Last 24 Hours (Table) 03/26/21 13:05 Blood Culture - Preliminary Blood No Growth after 96 hours 03/26/21 13:40 Blood Culture - Preliminary Blood No Growth after 96 hours Assessment and Plan Plan: Assessment: #1. Acute COVID-19 related pneumonia, patient is a non-vaccinated individual, presented with 2 week history of symptoms of progressive dyspnea and cough. Currently on Decadron, anticoagulation in the form of Lovenox, and IV hydration. Currently on 6 L of oxygen #2. Acute hypoxic respiratory failure secondary to the above, currently on 7 L #3. Shortness of breath and cough secondary to the above, unchanged, #4. Elevated inflammatory markers related to viral pneumonia, improving #5. Previous history of CVA with intracerebral artery coiling, possibly a [employer]ING bleed/aneurysmal #6. Ongoing episodes of fever related to COVID-19, afebrile right now #8. Sinus tachycardia related to fever COVID-19 infection, improved, heart rate is controlled now #9. Mild lactic acidosis secondary to the above Plan: Clinically patient continues to improve FiO2 is currently down to 4 L, continue weaning to keep O2 sats at or above 90% Continue Decadron Continue Lovenox If he patient is on less than 5 L of oxygen and continues to improve she may be considered for discharge home tomorrow. I performed a history & physical examination of the patient and discussed their management with my nurse practitioner, Sandra Ambriz. I reviewed the nurse practitioner's note and agree with the documented findings and plan of care. Lung sounds are positive fordiffuse crackles throughout the lung mendoza. The findings and the impression was discussed with the patient. I attest to the documentation by the nurse practitioner. Time with Patient: Less than 30
--- NOTE | 2021-03-31 14:31 | P.PN ---
Subjective Progress Note Date: 03/31/21 This is a pleasant 55 years old female with past medical history of CVA/TIA, osteoarthritis. She was diagnosed with Covid about 2 weeks ago when she had coughing and 7 she's been having worsening dyspnea and severe fever with generalized malaise and aches so she decided to come to emergency room. Also she complains from diarrhea every 15 minutes with no associated abdominal pain, no nausea vomiting. No chest pain. No urinary symptoms. Nonsmoker, no alcohol no illicit drugs. Abdomen vaccine 8 it against Covid before. Patient is hypoxic on admission with 6 L/m of oxygen via nasal cannula to keep s aturation in the 90s. Stable. Labs including CBC, BMP and liver enzymes are unremarkable. LDH elevated 1325 and C-reactive protein elevated at 7.7. Her d-dimer was elevated 2.6 and she had CTA of the chest which was negative for PE showing bilateral pneumonia. Also showing bilateral mediastinal and hilar lymphadenopathy. Patient was started on dexamethasone, normal saline at 100 mL per hour, vitamin C, vitamin D, zinc. Lanoxin. With pulmonary consult. 03/27/2021 Patient respiratory status looks same like yesterday with no worsening. She is saturating 90s on 6 L oxygen. No fever this morning. Her diarrhea stopped D-dimer down to 1.5. LDH down to 432 and C-reactive protein down to 6.4 went she remains on dexamethasone, multiple vitamins and normal saline at 75 mL/h Repeat chest x-ray in the morning 03/28/2021 Patient is with similar tachypnea but her oxygen requirement went up to 7 L/m today compared to 6 yesterday. She's also was complaining of from low back pain and low taken patch and Toradol 1 were provided. She remains on dexamethasone, multiple vitamins and normal saline at 75 mL/h. Patient was instructed to repeat CAT scan of the chest in 3 months for bilateral lymphadenopathy. Repeat chest x-ray and inflammatory markers tomorrow. Discussed with him in 03/29/2021 Patient seen and evaluated in follow up this morning continues on 7 L high flow via nasal cannula and stating she feels somewhat improved. Patient continues on IV dexamethasone along with vitamin C and zinc supplements, Lovenox, and albuterol and will continue. Inflammatory markers trending down and D dimer slightly elevated and will repeat labs and chest x-ray in the morning. Pulmonary is following closely. Will discontinue IV fluids as patient is tolerating diet with no reports of nausea or vomiting and diarrhea has subsided. 03/30/2021 Patient is seen this morning currently at 6 L high flow nasal cannula and tolerating with oxygen saturations above 90%. Pulmonary is following and patient is maintained on inhalers along with IV dexamethasone, Lovenox, vitamin, and zinc supplements. D-dimer is elevated at 2.0 and will increase Lovenox to twice daily. Patient is afebrile. Per nursing staff patient is not up and moving around very much and does have history of chronic back pain. Chest x-ray today shows findings consistent with patient's history of Covid pneumonia. 03/31/2021 Patient is seen and evaluated and follow-up this morning continues to be on 6 L high flow and states she is having shortness of breath with exertion although no worsening. Encouraged increased activity as tolerated and have ordered incentive spirometer and recommending to use at least 10 times every hour while awake. Will repeat chest x-ray and labs in the morning. Patient is afebrile. Review of systems: Constitutional: reports of fatigue, no reports of fever, or chills Cardiovascular: No reports of chest pain or palpitations Respiratory: No reports of worsening shortness of breath but continues with cough and shortness of breath with exertion GI: No reports of nausea, vomiting, diarrhea improved : No reports of dysuria or retention Neurovascular: reports generalized weakness and back pain All medications have been reviewed Active Medications Acetaminophen (Acetaminophen Tab 500 Mg Tab) 1,000 mg PO Q6HR PRN PRN Reason: Fever>101 Last Admin: 03/27/21 13:37 Dose: 1,000 mg Documented by: Albuterol Sulfate (Albuterol Hfa Inhaler) 2 puff INHALATION RT-Q6H PRN PRN Reason: Shortness Of Breath Or Wheezing Albuterol Sulfate (Albuterol Hfa Inhaler) 2 puff INHALATION RT-QID [facility] Last Admin: 03/31/21 12:11 Dose: 2 puff Documented by: Ascorbic Acid (Ascorbic Acid 500 Mg Tab) 500 mg PO BID [facility] Last Admin: 03/31/21 08:17 Dose: 500 mg Documented by: Cholecalciferol (Cholecalciferol 25 Mcg (1000 Iu) Tablet) 125 mcg PO DAILY [facility] Last Admin: 03/31/21 08:17 Dose: 125 mcg Documented by: Dexamethasone Sodium Phosphate (Dexamethasone Sod Phosphate 10 Mg/Ml 1 Ml Vial) 6 mg IV DAILY [facility] Stop: 04/04/21 09:01 Last Admin: 03/31/21 08:17 Dose: 6 mg Documented by: Enoxaparin Sodium (Enoxaparin 40 Mg/0.4 Ml Syringe) 40 mg SQ BID [facility] Last Admin: 03/31/21 08:17 Dose: 40 mg Documented by: Lidocaine (Lidocaine 5% Patch) 1 patch TOPICAL DAILY [facility]; Protocol Last Admin: 03/31/21 10:54 Dose: Not Given Documented by: Melatonin (Melatonin 5 Mg Tablet) 5 mg PO HS [facility] Last Admin: 03/30/21 22:03 Dose: 5 mg Documented by: Naloxone HCl (Naloxone 0.4 Mg/Ml 1 Ml Vial) 0.2 mg IV Q2M PRN PRN Reason: Opioid Reversal Zinc Sulfate (Zinc Sulfate 220 Mg Cap) 220 mg PO DAILY [facility] Last Admin: 03/31/21 08:17 Dose: 220 mg Documented by: Physical exam: GENERAL: The patient is alert and oriented x3, not in any acute distress. Well developed, well nourished. HEENT: Pupils are round and equally reacting to light. EOMI. No scleral icterus. No conjunctival pallor. Normocephalic, atraumatic. No pharyngeal erythema. No thyromegaly. CARDIOVASCULAR: S1 and S2 present. No murmurs, rubs, or gallops. PULMONARY: diminished breath sounds bilaterally, no wheezing or crackles noted. Diffuse course bilateral rhonchi noted at the bases with cough exhibited on deep inhalation ABDOMEN: Soft, nontender, nondistended, normoactive bowel sounds. No palpable organomegaly. MUSCULOSKELETAL: No joint swelling or deformity. EXTREMITIES: No cyanosis, clubbing, or pedal edema. NEUROLOGICAL: Gross neurological examination did not reveal any focal deficits. SKIN: No rashes. no petechiae. Assessment: Acute covid 19 interstitial bilateral pneumonia Acute hypoxic respiratory failure secondary to above bilateral mediastinal and hilar lymphadenopathy Increased inflammatory markers. dyspnea and fever, on admission History of CVA History of osteoarthritis Obesity with BMI of 31.3. GI prophylaxis DVT prophylaxis Plan: Recommend to continue current medications and management. Pulmonary following closely. Patient is continued on IV dexamethasone along with vitamin and zinc supplements, subcutaneous Lovenox and will continue. Encouraged increased activity as tolerated and continued incentives spirometer use at least 10 times every hour while awake. Patient currently maintained on 6 L of high flow oxygen via nasal cannula and discussed with nursing staff about weaning FiO2 as tolerated. Oxygen saturation is 92-94%. If patient continues with pulse ox above 90% and tolerating 4-5 L via nasal cannula will discuss with pulmonary about discharging patient and will likely require oxygen secondary to Covid 19 pneumonia. Will discuss with case management. If respiratory status continues to improve will consider discharging in the next 48 hours. Objective - Vital Signs Vital signs: Vital Signs Temp 98.5 F 03/31/21 05:41 Pulse 59 L 03/31/21 05:41 Resp 17 03/31/21 05:41 BP 135/78 03/31/21 05:41 Pulse Ox 92 L 03/31/21 08:25 Intake & Output 03/30/21 03/31/21 03/31/21 18:59 06:59 18:59 Intake Total 708 300 236 Balance 708 300 236 Intake: Oral 708 300 236 Other: Voiding Method Toilet Bedside Commode # Voids 1 1 - Labs CBC & Chem 7: 03/30/21 09:07 03/30/21 09:07 Labs: Abnormal Lab Results - Last 24 Hours (Table) 03/30/21 03/30/21 03/30/21 Range/Units 09:07 09:07 09:07 RBC 3.77 L (3.80-5.40) m/uL D-Dimer 2.00 H (<0.60) mg/L FEU BUN (7-17) mg/dL Glucose (74-99) mg/dL Lactate Dehydrogenase 877 H (313-618) U/L C-Reactive Protein 2.2 H (<1.0) mg/dL 03/30/21 Range/Units 09:07 RBC (3.80-5.40) m/uL D-Dimer (<0.60) mg/L FEU BUN 22 H (7-17) mg/dL Glucose 134 H (74-99) mg/dL Lactate Dehydrogenase (313-618) U/L C-Reactive Protein (<1.0) mg/dL Microbiology - Last 24 Hours (Table) 03/26/21 13:05 Blood Culture - Preliminary Blood No Growth after 96 hours 03/26/21 13:40 Blood Culture - Preliminary Blood No Growth after 96 hours
[2021-03-31] MEDS: MELATONIN 5 MG TABLET PO SCH (20:22)
--- NOTE | 2021-04-01 08:26 | XR ---
EXAMINATION TYPE: XR chest 1V portable DATE OF EXAM: 04/01/2021 COMPARISON: Chest x-ray 03/30/2021, chest CT 03/26/2021 HISTORY: Covid TECHNIQUE: Single frontal view of the chest is obtained. FINDINGS: Patchy groundglass opacity, interstitial prominence is present bilaterally similar to prio r exam. There is no evident pneumothorax or sizable effusion. Lung volumes are low. Cardiac mediastin al silhouette is stable. Aorta is dense. There is overlying artifact. IMPRESSION: Findings similar to prior exam, correlate for pneumonia, there is underlying emphysema
[2021-04-01] MEDS: ALBUTEROL HFA INHALER INHALATION SCH ×3 (09:07→15:34)
[2021-04-01 09:30] LABS: Basophils % (A) 0 %; Eosinophils % (A) 0 %; HCT 36.7 % (34.0-46.0); HGB 11.9 gm/dL (11.4-16.0); Lymphocytes # (A) 2.2 k/uL (1.0-4.8); Lymphocytes % (A) 31 %; MCH 30.1 pg (25.0-35.0); MCHC 32.5 g/dL (31.0-37.0); MCV 92.6 fL (80.0-100.0); Mean Platelet Volume 9.1; Monocytes # (A) 0.5 k/uL (0-1.0); Monocytes % (A) 7 %; Neutrophils # (A) 4.2 k/uL (1.3-7.7); Neutrophils % (A) 58 %; Platelet Count 365 k/uL (150-450); RBC 3.96 m/uL (3.80-5.40); RDW 13.2 % (11.5-15.5); WBC 7.4 k/uL (3.8-10.6)
[2021-04-01] MEDS: CHOLECALCIFEROL 25 MCG (1000 IU) TABLET PO SCH (09:31)
[2021-04-01] MEDS: ZINC SULFATE 220 MG CAP PO SCH (09:31)
[2021-04-01] MEDS: LIDOCAINE 5% PATCH TOPICAL SCH (09:31)
[2021-04-01] MEDS: ASCORBIC ACID 500 MG TAB PO SCH (09:31)
[2021-04-01] MEDS: ENOXAPARIN 40 MG/0.4 ML SYRINGE SQ SCH (09:31)
[2021-04-01 09:51] LABS: African American GFR (CKD) >90 (>60 ml/min/1.73 sqM); Anion Gap 5 mmol/L; Blood Urea Nitrogen 26 mg/dL (7-17); Calcium 8.3 mg/dL (8.4-10.2); Carbon Dioxide 27 mmol/L (22-30); Chloride 106 mmol/L (98-107); Glucose 97 mg/dL (74-99); Non-African American GFR(CKD) >90 (>60 ml/min/1.73 sqM); Potassium 3.8 mmol/L (3.5-5.1); Sodium 138 mmol/L (137-145)
[2021-04-01 09:58] VITALS: BP 104/68; PULSE 78; RESP 18; TEMP 98.1
[2021-04-01] MEDS: DEXAMETHASONE SOD PHOSPHATE 10 MG/ML 1 ML VIAL IV SCH (10:12)
[2021-04-01 11:04] LABS: C Reactive Protein 0.5 mg/dL (0.00-0.80)
[2021-04-01 13:27] VITALS: BMI 31.3
--- NOTE | 2021-04-01 13:57 | P.PN ---
Subjective Progress Note Date: 04/01/21 Principal diagnosis: Acute COVID-19 pneumonia On 03/29/2021 patient seen in follow-up on medical surgical floor. She is currently on 7 L of oxygen, her pulse ox is 90-91%, she looks weak, but does not look in any distress, does not appear to be dyspneic, occasional cough, no c omplaints of chest discomfort. No use of accessory muscles of breathing. Last chest x-ray from 03/27/2021 showed scattered interstitial infiltrates, stable chest. No fever or chills, the rest of vitals were stable, no acute events overnight, her d-dimer is relatively stable. LDH is 426, relatively stable, and CRP is improved and is down to 2.80, Procan SR level is negative at 0.17. Patient remains on Decadron 6 mg daily, Lovenox 40 mg daily, and multivitamins. CTA chest showed bilateral COVID pneumonia, there was breathing motion artifact, however no definite to visualize pulmonary embolus was identified. There was mediastinal and bilateral hilar lymphadenopathy measuring up to 2.0 cm possibly reactive On 03/30/2021 patient seen in follow-up on medical surgical floor. Patient is t immanuel down to 6 L of oxygen, breathing comfortably, her pulse ox is 93%, she is afebrile, vital signs have been stable, she is sitting up on the edge the bed, she sounds improved on physical exam, less short of breath, and overall seems to be a bit more energetic and stronger. follow up chest x-ray today showing findings consistent with patient's history of COVID pneumonia. Today's labs have been reviewed, d-dimer is 2.0, CBC showed white blood cell count of 7.0, hemoglobin of 11.4, electrolytes are within normal limits, BUN is 22 and creatinine 0.71, LDH is on the rise, and is up to 877 on today's labs, and CRP is 2.2, improved from admission. Pro-calcitonin level is negative at 0.17. She continues on Decadron 6 mg daily, COVID-19 vitamins, and prophylactic Lovenox. CTA chest had breathing motion artifact but no definite evidence of pulmonary embolism. On 03/31/2021 patient seen in follow-up. She is currently on 6 L of oxygen pulse ox is 94%, she is breathing comfortable, no chest pain, no worsening dyspnea, she is sitting up in bed, does not appear to be in any acute distress, FiO2 was cut back to 4 L. Vital signs have been stable, no fever or chills, no acute events overnight, occasional cough, exertional dyspnea, but overall she states she is feeling better. No new chest x-ray, no new labs. Follow-up labs pending for tomorrow, she continues on Decadron 6 blood gram daily, COVID-19 vitamins, and prophylactic dose Lovenox. Her appetite is fair, no nausea vomiting diarrhea, On 04/01/2021 patient seen in follow-up on the general medical surgical floor. She is currently on 4 L of oxygen pulse ox of 91%, she is breathing comfortably, she looks quite comfortable, in no acute distress, today's chest x-ray shows patchy groundglass opacity, interstitial prominence, with no change compared to previous exam, his labs have been noted, CBC was within normal limits, d-dimer is 2.01, electrolytes were within normal limits, BUN was 26, creatinine 0.65. Her LDH continues to improve and is down to 294, her CRP is within normal limits today and is down to 0.5. Discharge home is pending today. Patient has been treated with Decadron, prophylactic Lovenox 40 mg twice daily, bronchodilators, and vitamins. Clinically she is improving. Objective - Vital Signs Vital signs: Vital Signs Temp 98.1 F 04/01/21 09:57 Pulse 78 04/01/21 09:57 Resp 18 04/01/21 09:57 BP 104/68 04/01/21 09:57 Pulse Ox 91 L 04/01/21 09:57 Intake & Output 03/31/21 04/01/21 04/01/21 18:59 06:59 18:59 Intake Total 708 Balance 708 Weight 96.162 kg Intake: Oral 708 Other: Voiding Method Toilet Bedside Commode # Voids 1 3 - Exam GENERAL EXAM: Alert, very pleasant, 55-year-old white female, on 4 L of oxygen the pulse ox of 93-94%, appears to be in no acute distress comfortable in no apparent distress. HEAD: Normocephalic/atraumatic. EYES: Normal reaction of pupils, equal size. Conjunctiva pink, sclera white. NOSE: Clear with pink turbinates. THROAT: No erythema or exudates. NECK: No masses, no JVD, no thyroid enlargement, no adenopathy. CHEST: No chest wall deformity. Symmetrical expansion. LUNGS: Equal air entry with bilateral crackles CVS: Regular rate and rhythm, normal S1 and S2, no gallops, no murmurs, no rubs ABDOMEN: Soft, nontender. No hepatosplenomegaly, normal bowel sounds, no guarding or rigidity. EXTREMITIES: No clubbing, no edema, no cyanosis, 2+ pulses and upper and lower extremities. MUSCULOSKELETAL: Muscle strength and tone normal. SPINE: No scoliosis or deformity SKIN: No rashes CENTRAL NERVOUS SYSTEM: Alert and oriented -3. No focal deficits, tone is normal in all 4 extremities. PSYCHIATRIC: Alert and oriented -3. Appropriate affect. Intact judgment and insight. - Labs CBC & Chem 7: 04/01/21 06:03 04/01/21 06:03 Labs: Abnormal Lab Results - Last 24 Hours (Table) 04/01/21 04/01/21 04/01/21 Range/Units 06:03 06:03 06:04 D-Dimer 2.01 H (<0.60) mg/L FEU BUN 26 H (7-17) mg/dL Calcium 8.3 L (8.4-10.2) mg/dL Lactate Dehydrogenase 294 H (120-246) U/L Microbiology - Last 24 Hours (Table) 03/26/21 13:05 Blood Culture - Preliminary Blood No Growth after 120 hours 03/26/21 13:40 Blood Culture - Preliminary Blood No Growth after 120 hours Assessment and Plan Plan: Assessment: #1. Acute COVID-19 related pneumonia, patient is a non-vaccinated individual, presented with 2 week history of symptoms of progressive dyspnea and cough. Currently on Decadron, anticoagulation in the form of Lovenox, and IV hydration. Currently on 4 L of oxygen #2. Acute hypoxic respiratory failure secondary to the above, currently on 7 L #3. Shortness of breath and cough secondary to the above, unchanged, #4. Elevated inflammatory markers related to viral pneumonia, improving #5. Previous history of CVA with intracerebral artery coiling, possibly a [employer] bleed/aneurysmal #6. Ongoing episodes of fever related to COVID-19, afebrile right now #8. Sinus tachycardia related to fever COVID-19 infection, improved, heart rate is controlled now #9. Mild lactic acidosis secondary to the above Plan: Clinically patient continues to improve, Appears a bit more energetic and stronger on today's exam No acute distress, breathing comfortably Vital signs have been stable Still on 4 L of oxygen maintaining stable O2 saturations above 90% Stable for discharge home from pulmonary perspective She can finish outpatient course of oral Decadron for a total of 10 days And she can continue on COVID-19 vitamins No need for prophylactic anticoagulation after discharge Outpatient follow-up with Dr. Overton in 2 weeks I performed a history & physical examination of the patient and discussed their management with my nurse practitioner, Sandra Ambriz. I reviewed the nurse practitioner's note and agree with the documented findings and plan of care. Lung sounds are positive fordiffuse crackles throughout the lung mendoza. The findings and the impression was discussed with the patient. I attest to the documentation by the nurse practitioner. Time with Patient: Less than 30
--- NOTE | 2021-04-01 15:54 | P.DS ---
Providers Date of admission: 03/26/21 14:40 Expected date of discharge: 04/01/21 Attending physician: Carloz Ramires MD Consults: 03/26/21 14:36 Consult Physician Urgent Consulting Provider: Norma Overton Consult Reason/Comments: covid, hypoxia Do you want consulting provider notified?: Yes [facility] [place] [facility] Course: Final diagnosis Acute covid 19 interstitial bilateral pneumonia Acute hypoxic respiratory failure secondary to above bilateral mediastinal and hilar lymphadenopathy Increased inflammatory markers. dyspnea and fever, on admission History of CVA History of osteoarthritis Obesity with BMI of 31.3. GI prophylaxis DVT prophylaxis Discharge disposition Patient is being discharged in a stable condition with guarded prognosis to home. Patient will follow-up with Dr. Bender in the outpatient setting upon discharge. Patient is to also follow-up with pulmonary in the outpatient setting. Patient will continue on a dexamethasone on discharge to complete the course. She will also continue vitamin and zinc supplements and will require oxygen via nasal cannula at 4 L secondary to COVID-19. Total time taken is greater than 35 minutes. Hospital course This is a pleasant 55 years old female with past medical history of CVA/TIA, osteoarthritis. She was diagnosed with Covid about 2 weeks ago when she had coughing and 7 she's been having worsening dyspnea and severe fever with generalized malaise and aches so she decided to come to emergency room. Also she complains from diarrhea every 15 minutes with no associated abdominal pain, no nausea vomiting. No chest pain. No urinary symptoms. Nonsmoker, no alcohol no illicit drugs. Abdomen vaccine 8 it against Covid before. Patient is hypoxic on admission with 6 L/m of oxygen via nasal cannula to keep saturation in the 90s. Stable. Labs including CBC, BMP and liver enzymes are unremarkable. LDH elevated 1325 and C-reactive protein elevated at 7.7. Her d-dimer was elevated 2.6 and she had CTA of the chest which was negative for PE showing bilateral pneumonia. Also showing bilateral mediastinal and hilar lymphadenopathy. Patient was started on dexamethasone, normal saline at 100 mL per hour, vitamin C, vitamin D, zinc. Lanoxin. With pulmonary consult. 04/01/2021 Patient is seen this morning currently on 4 L and tolerating well with pulmonary following closely. Repeat chest x-ray is stable and consistent with previous exams and patient is maintained on IV dexamethasone and we'll transition to oral dexamethasone 6 mg daily for the next few days to complete the course. Patient will also continue on vitamin and zinc supplements and recommend outpatient follow-up with pulmonary in 2-3 weeks and continued on 4 L via nasal cannula secondary to COVID-19. Patient encouraged to follow-up with primary care provider on discharge and continue with incentive spirometer use at least 10 times every hour while awake. Encourage fluids and rest and monitoring closely for any worsening signs or symptoms of Covid 19. Currently no reports of chest pain, worsening shortness of breath, or palpitations. Patient is afebrile. No reports of nausea or vomiting and patient is tolerating diet. Patient will be discharged home today. GENERAL: The patient is alert and oriented x3, not in any acute distress. Well developed, well nourished. HEENT: Pupils are round and equally reacting to light. EOMI. No scleral icterus. No conjunctival pallor. Normocephalic, atraumatic. No pharyngeal erythema. No thyromegaly. CARDIOVASCULAR: S1 and S2 present. No murmurs, rubs, or gallops. PULMONARY: Chest is clear to auscultation, no wheezing or crackles. ABDOMEN: Soft, no tenderness noted on exam, non-distended, normoactive bowel sounds. No palpable organomegaly. MUSCULOSKELETAL: No joint swelling or deformity. EXTREMITIES: No cyanosis, clubbing, or pedal edema. NEUROLOGICAL: Gross neurological examination did not reveal any focal deficits. SKIN: No rashes. no petechiae. Please refer to medication reconciliation sheet for a list of medications. Patient Condition at Discharge: Stable Plan - Discharge Summary Discharge Rx Participant: No New Discharge Prescriptions: New Lidocaine 5% Patch [Lidoderm 5% Patch] 1 patch TOPICAL DAILY #20 patch Albuterol Inhaler [Ventolin Hfa Inhaler] 2 puff INHALATION RT-QID 30 Days #1 gm Ascorbic Acid [Vitamin C] 500 mg PO BID 30 Days #60 tab Dexamethasone 6 mg PO DAILY 3 Days #3 tablet Zinc Sulfate [Orazinc] 220 mg PO DAILY 30 Days #30 cap Albuterol Inhaler [Ventolin Hfa Inhaler] 2 puff INHALATION RT-Q6H PRN gm PRN Reason: Shortness Of Breath Or Wheezing Cholecalciferol [Vitamin D3 (25 Mcg = 1000 Iu)] 50 mcg PO DAILY 30 Days #60 tablet Continue Acetaminophen Tab [Tylenol] 650 mg PO Q4H PRN PRN Reason: Pain Or Fever > 100.5 Discharge Medication List Acetaminophen Tab [Tylenol] 650 mg PO Q4H PRN 03/26/21 [History] Albuterol Inhaler [Ventolin Hfa Inhaler] 2 puff INHALATION RT-Q6H PRN gm 04/01/21 [Rx] Albuterol Inhaler [Ventolin Hfa Inhaler] 2 puff INHALATION RT-QID 30 Days #1 gm 04/01/21 [Rx] Ascorbic Acid [Vitamin C] 500 mg PO BID 30 Days #60 tab 04/01/21 [Rx] Cholecalciferol [Vitamin D3 (25 Mcg = 1000 Iu)] 50 mcg PO DAILY 30 Days #60 tablet 04/01/21 [Rx] Dexamethasone 6 mg PO DAILY 3 Days #3 tablet 04/01/21 [Rx] Lidocaine 5% Patch [Lidoderm 5% Patch] 1 patch TOPICAL DAILY #20 patch 04/01/21 [Rx] Zinc Sulfate [Orazinc] 220 mg PO DAILY 30 Days #30 cap 04/01/21 [Rx] Follow up Appointment(s)/Referral(s): Ata Ortiz MD [STAFF PHYSICIAN] - 04/27/21 2:00 pm (With Macario Baird MD [Primary Care Provider] - 1-2 Days (Please call to schedule appointment ) [facility] [NON-STAFF] - As Needed (oxygen ) Patient Instructions/Handouts: Coronavirus Disease 2019 (COVID-19) Activity/Diet/Wound Care/Special Instructions: activity Limited until follow-up Follow-up with primary care provider on discharge Follow-up with pulmonary in 2-3 weeks Continue current diet Take medications as prescribed Continue with home oxygen at 4 L via nasal cannula secondary to COVID-19 Discharge Disposition: HOME SELF-CARE
== END 2021-04-01 16:28 | disposition home or self-care (01) | DRG 177 ==
LOC: EC 13:07 → 4SSUR 14:40
PROVIDERS: ADMIT Internal Medicine; ATTEND Internal Medicine
DX: U07.1 COVID-19 (principal); J12.82 Pneumonia due to coronavirus disease 2019; J96.01 Acute respiratory failure with hypoxia; E87.2 Acidosis; D72.810 Lymphocytopenia; R59.0 Localized enlarged lymph nodes; E66.9 Obesity, unspecified; Z68.31 Body mass index [BMI] 31.0-31.9, adult; M19.90 Unspecified osteoarthritis, unspecified site; R79.82 Elevated C-reactive protein (CRP); R00.0 Tachycardia, unspecified; Z79.01 Long term (current) use of anticoagulants; Z80.0 Family history of malignant neoplasm of digestive organs; Z80.1 Family history of malignant neoplasm of trachea, bronchus and lung; Z86.73 Personal history of transient ischemic attack (TIA), and cerebral infarction without residual deficits; Z87.891 Personal history of nicotine dependence; Z90.710 Acquired absence of both cervix and uterus; Z98.890 Other specified postprocedural states; Z88.0 Allergy status to penicillin; Z86.79 Personal history of other diseases of the circulatory system; Z90.49 Acquired absence of other specified parts of digestive tract
CPT/HCPCS: 36415; 71045; 71275; 80048; 80053; 82728; 83605; 83615; 83735; 84145; 85025; 85379; 85610; 85730; 86140; 87040; 87635; 93005; 94640; 94760; 96360; 99285

== ENCOUNTER → 2021-12-27 | Outpatient (CLI) | payer OTHER ==
--- NOTE | 2021-12-28 07:07 | MR ---
EXAMINATION TYPE: MR lumbar spine wo con DATE OF EXAM: 12/27/2021 COMPARISON: 08/06/2020 HISTORY: low back pain CONTRAST: 0 mL intravenous Gadavist. TECHNIQUE: Multiplanar, multisequence images of the lumbar spine were acquired. FINDINGS: There is mild retrolisthesis of L2 on L3 and L3 on L4 and L4 on L5. Minimal retrolisthesis of L5 post eriorly S1 may be present. These were present previously and appear stable. There is narrowing of dis c height at L2-3 which is stable. There is narrowing of L5-S1 disc space posteriorly which is stable. Cord terminates at the L1 level. L5-S1: No significant disc bulge or disc herniation. No spinal canal stenosis. Mild left foraminal narrowing is present. Some ligamentum flavum laxity is present.. L4-L5: No significant disc bulge or disc herniation. Disc uncovering does have mild anterior thecal s ac contact. No spinal canal stenosis. No foraminal stenosis. . T12-L1 through L3-L4: No significant disc bulge or disc herniation. Disc uncovering from retrolisthes is. Is present L2-3 and L3-4. No spinal canal stenosis. Neural foramen are patent.. IMPRESSION: 1. Minimal grade 1 retrolisthesis L2-3 through L5-S1. 2. Mild loss of disc height L2-3 and L5-S1. 3. Left foraminal narrowing L5-S1. 4. Examination appears stable from 08/06/2020
== END | disposition home or self-care (01) ==
LOC: RADMRIMAIN 11:27
PROVIDERS: ATTEND Physical Medicine & Rehabilitation
DX: M47.817 Spondylosis without myelopathy or radiculopathy, lumbosacral region (principal); M43.16 Spondylolisthesis, lumbar region; M51.27 Other intervertebral disc displacement, lumbosacral region
CPT/HCPCS: 72148

== ENCOUNTER → 2022-01-14 | Outpatient (CLI) | payer OTHER ==
[2022-01-14 14:27] LABS: INR 0.9 (<1.2); Partial Thromboplastin Time 24.9 sec (22.0-30.0); Prothrombin Time 9.8 sec (9.0-12.0)
[2022-01-14 18:14] LABS: HCT 36.5 % (37.2-46.3); HGB 11.7 g/dL (12.0-15.0); MCH 29.6 pg (27.0-32.0); MCHC 32.1 g/dL (32.0-37.0); MCV 92.4 fL (80.0-97.0); Mean Platelet Volume 10.9 fL (9.5-12.2); NRBC Per 100 WBC 0 /100 WBCS (0.0-0.0); Platelet Count 228 X 10*3/uL (140-440); RBC 3.95 X 10*6/uL (4.10-5.20); RDW 13.7 % (11.5-14.5); WBC 5.44 X 10*3/uL (4.50-10.00)
[2022-01-14 18:22] LABS: African American GFR (CKD) 87.8 (60.0-200.0); Albumin 4.1 g/dL (3.8-4.9); Albumin/Globulin Ratio 1.48 (1.60-3.17); BUN/Creat Ratio 17.69 Ratio (12.00-20.00); Calcium 9.1 mg/dL (8.7-10.3); Carbon Dioxide 25.4 mmol/L (20.0-27.5); Globulin 2.8 g/dL (1.6-3.3); Non-African American GFR(CKD) 75.7 (60.0-200.0); Potassium 3.8 mmol/L (3.5-5.5); Total Bilirubin 0.4 mg/dL (0.30-1.20); Total Protein 6.9 g/dL (6.2-8.2)
[2022-01-14 22:53] LABS: Appearance,Urine Clear (Clear); Bilirubin,Urine Negative (Negative); Blood,Urine Negative (Negative); Color,Urine Yellow (Yellow); Ketones,Urine Negative (Negative); Nitrite,Urine Negative (Negative); Specific Gravity,Urine 1.015 (1.001-1.030); Urobilinogen,Urine 0.2 (0.2,1.0)
[2022-01-14 22:59] LABS: Bacteria,Urine None Seen /HPF (None Seen)
== END | disposition home or self-care (01) ==
LOC: LABPAT 13:26
PROVIDERS: ATTEND Orthopaedic Surgery
DX: Z01.812 Encounter for preprocedural laboratory examination (principal); M16.12 Unilateral primary osteoarthritis, left hip
CPT/HCPCS: 80053; 81001; 85027; 85610; 85730; 87070; 93005

== ENCOUNTER 2022-01-25 12:04 | Day surgery (SDC) | payer OTHER ==
[2022-01-21 15:02] VITALS: BMI 33.2
[~2022-01-25 12:04] MED LIST changes: +ACETAMINOPHEN TAB 500 MG TAB PO PRN; +GABAPENTIN 300 MG CAP PO PRN; +LIDOCAINE 1% (10MG/ML) FOR IV START INTRADERMA PRN; +MELOXICAM 7.5 MG TAB PO PRN; -MIDAZOLAM 2 MG/2 ML VIAL IV PRN; +ONDANSETRON 4 MG/2 ML VIAL IVP ONE; -ROPIVACAINE 246.25 MG, EPINEPHrine 0.5 MG, KETOROLAC 30 MG, cloNIDine HCL/PF 80 MCG, WA... MISCELLANE ONE; -SCOPOLAMINE 1.5MG/72HR PATCH TRANSDERM ONE; -TRANEXAMIC ACID 1,000 MG in SODIUM CHLORIDE 0.9% 100 ML IVPB ONE; +TRANEXAMIC ACID IN NACL,ISO-OS 1,000 MG in SALINE 1 100ML.BAG IVPB PRN
[2022-01-25] MEDS: LACTATED RINGERS 1,000 ML IV SCH ×3 (13:12→20:08)
[2022-01-25] MEDS ORDERED: PROPOFOL 10 MG/ML 20 ML VIAL IV ONE (13:49)
[2022-01-25] MEDS ORDERED: MIDAZOLAM 2 MG/2 ML VIAL ONE (13:49)
[2022-01-25] MEDS ORDERED: ceFAZolin 1,000 MG in SODIUM CHLORIDE 0.9% 1,000 ML IRRIGATION ONE (13:49)
[2022-01-25] MEDS ORDERED: LIDOCAINE 2% INJ 20 MG/ML (2 ML VIAL) ONE (13:49)
[2022-01-25] MEDS ORDERED: fentaNYL (PF) 50 MCG/ML 2 ML AMP ONE (13:49)
[2022-01-25] MEDS ORDERED: TRANEXAMIC ACID IN NACL,ISO-OS 1,000 MG/100 ML BAG ONE (13:49)
[2022-01-25] MEDS ORDERED: ROPIVACAINE 5 MG/ML 30 ML VIAL MISCELLANE ONE ×2 (14:12→14:51)
[2022-01-25] MEDS ORDERED: LACTATED RINGERS 1,000 ML IV ONE (14:52)
--- NOTE | 2022-01-25 15:02 | P.OP ---
Date of Procedure: 01/25/22 Preoperative Diagnosis: Severe osteoarthritis left hip Postoperative Diagnosis: Severe osteoarthritis left hip Procedure(s) Performed: Left total hip arthroplasty with a direct anterior approach Implants: [employer] Polarstem standard size 7 [employer] R3, 3 hole hemispherical acetabular shell, 54 mm [employer] Reflection 6.5 mm cancellus screw, 20 mm 2 [employer] R3, XLPE 20 acetabular liner [employer] Oxinium femoral head 36 m, +4 All components were press-fit. The articulation is Oxinium on polyethylene. Anesthesia: spinal Surgeon: Jorge Nobles Document Examiner #1: Jina Barba Estimated Blood Loss (ml): 350 Pathology: other (Femoral head) Condition: stable Disposition: PACU Indications for Procedure: After failure of conservative treatment we discussed the surgical and nonsurgical treatment options at length. Patient wishes to proceed with a total hip arthroplasty with a direct anterior approach. Complications specific to this procedure were discussed at length, including but not limited to infection, leg length discrepancy, dislocation, nerve injury, and fracture. Covid-19 was also discussed at length with the patient, and they are aware of the current policies and procedures. The patient was given the option of delaying surgery, but they elect to proceed knowing these risks. Patient is aware of all these complications and informed consent was obtained Operative Findings: The operative findings are consistent with severe osteoarthritis of the left hip Description of Procedure: Patient was seen and evaluated in the preoperative area and the consent was reviewed. The operative site was marked with a skin marker. The patient was then brought to the operating room and given preoperative antibiotics in travenously. 1 g of Tranexamic acid was also given intravenously. A spinal anesthetic was administered by the anesthesia department. The patient was then placed on the [place] table with the bony prominences well-padded. The hip area was then prepped with a ChloraPrep solution and draped in the usual sterile fashion. A universal timeout was then performed, which confirmed the patient's name, espino rgical site, ALLERGIES, and procedure being performed on the consent. Next the incision site was located at 1 cm distal and 2 cm lateral to the anterior superior iliac spine. The skin and subcutaneous tissues were sharply incised. Incision was carefully dissected down to the fascia overlying the tensor fascia audrey muscle. This fascia was then incised in line with the incision. Care was taken to stay laterally in order to avoid injuring the lateral femoral cutaneous nerve. Next, using blunt finger dissection, the tensor fascia audrey muscle was dissected off its investing fascia. The muscle was then carefully retracted laterally with a cobra retractor over the lateral neck of the femur. Next, the circumflex vessels were identified and cauterized using the AquaMantis device. The anterior hip capsule was then exposed. The capsule was then opened and an inverted T fashion. Cobra retractors were then placed intracapsularly. The retractors were maintained intracapsular throughout the procedure. The proximal femur was then visualized. Fluoroscopic x-rays were then taken in order to evaluate the preoperative leg lengths. A small amount of traction was placed on the leg. The femoral neck was then osteotomized at the appropriate level above the lesser trochanter. A small wedge of bone was then removed from the remaining femoral head. Next, using a corkscrew the femoral head was removed from the acetabulum. On gross visual inspection, the femoral head had complete loss of articular cartilage and multiple periarticular osteophytes. The femoral head was then measured. Attention was then turned to the acetabulum. The acetabulum was exposed and any remaining labrum was excised. Sequential reaming of the acetabulum was performed using fluoroscopic guidance until there was a good bed of bleeding cancellus bone. When the appropriate size was reached, a trial was then placed. The position and fit of the trial was checked with fluoroscopy. The trial was then removed. Then, using fluoroscopic guidance, the final implant was impacted at 20 of anteversion and 40 of abduction, and fully seated in the acetabulum. 2 screws were then placed in the acetabulum. Again fluoroscopy was used to check position of the screws. Next, the liner was then impacted, with a 20 elevated liner located in the anterior superior quadrant. Component locking was confirmed. Attention was then directed to the femur. With the aid of the [place] table, the femur was externally rotated to approximately 130, extended, and adducted under the opposite leg. A side hook was then placed under the proximal femur, and the side hook elevator was used to elevate the proximal femur while releasing the capsule. Retractors were then placed. A capsular release was performed, as well as a release of the conjoined tendon, which afforded excellent visualization of the proximal femur. Next, a box osteotome was used to lateralize the proximal femur. A merchandising team lead was then used to locate the femoral canal. Sequential broaching was then performed with appropriate size which afforded excellent fixation in the proximal femur. A trial was then placed with appropriate head and neck, and the hip was gently reduced with the aid of the [place] table. Fluoroscopy was then used to check position of the components, as well as to ensure equal leg lengths. The hip was then gently dislocated and the trials were then removed. Final implants were then impacted and the hip was again reduced. Final fluoroscopic x-rays confirmed that the components were in anatomic position, as well as equal leg lengths. The hip was also taken through range of motion, and found to be stable. The hip was then copiously irrigated with antibiotic solution with pulsatile lavage. The hip was then irrigated with Irrisept solution. The soft tissues were then injected with a ropivacaine solution. A second dose of 1 g of Tranexamic acid was also given intravenously. The fascia was then closed with 2-0 strata fix suture. The subcutaneous tissue was closed with 3-0 Vicryl. The subcuticular tissue was closed with 3-0 strata fix suture. The skin was then closed with Exofin skin glue. After the glue and dried, and Optifoam silver impregnated dressing was applied. The patient was then transferred to the recovery room in stable condition. The production assistant SHALOM Thomas was required due to the complexity of surgery, and the need for skilled director medical surgical for positioning, draping, exposure, retraction, and closure of the wound.
[2022-01-25] MEDS ORDERED: HYDROmorphone 0.5 MG/0.5 ML SYRINGE IVP PRN ×2 (15:28)
[2022-01-25] MEDS ORDERED: HYDROmorphone 1 MG/ML 1 ML SYRINGE IVP PRN (15:28)
[2022-01-25] MEDS ORDERED: NALOXONE 0.4 MG/ML 1 ML VIAL IV PRN (15:28)
[2022-01-25] MEDS ORDERED: HYDROcodone/APAP 5-325MG 1 EACH TAB PO PRN (15:28)
[2022-01-25] MEDS ORDERED: hydrOXYzine pamoate 25 MG CAP PO PRN (15:28)
--- NOTE | 2022-01-25 15:39 | FL ---
EXAMINATION TYPE: FL guidance operating room, XR Hip Limited LT DATE OF EXAM: 01/25/2022 CLINICAL HISTORY: Left hip pain and osteoarthritis. TECHNIQUE: Fluoroscopy. Intraoperative limited views left hip. COMPARISON: None. FINDINGS: Fluoroscopic guidance was provided during left hip replacement procedure performed by Dr. Nobles. A total of 68 seconds of fluoroscopic time was utilized during the procedure and 3 spot im ages was acquired. Intraoperative images acquired show metallic hardware from total left hip arthroplasty is satisfactor y in position on frontal projection. IMPRESSION: As Above.
--- NOTE | 2022-01-25 16:29 | XR ---
EXAMINATION TYPE: XR Hip Limited LT DATE OF EXAM: 01/25/2022 3:55 PM INDICATION: Patient age:Female; 56 years old; Reason for study: Status post hip surgery, assess surgical alignment; PHH. COMPARISON: None. TECHNIQUE: The left hip was examined in frontal projection FINDINGS: Post arthroplasty changes, hardware is intact, alignment is appropriate. No evidence of fra cture. Postoperative changes soft tissue. No evidence of any acute osseous pathology or joint disloca tion. IMPRESSION: Total hip arthroplasty with hardware intact and in appropriate alignment. No acute fracture.
[2022-01-25] MEDS: HYDROmorphone 0.5 MG/0.5 ML SYRINGE IVP PRN ×3 (17:32→18:13)
[2022-01-25] MEDS ORDERED: KETOROLAC 15 MG/ML 1 ML VIAL IVP ONE (18:10)
[2022-01-25] MEDS: HYDROcodone/APAP 5-325MG 1 EACH TAB PO PRN (20:09)
[2022-01-25] MEDS: ASPIRIN 325 MG TAB PO SCH (20:10)
[2022-01-25] MEDS ORDERED: SENNOSIDES-DOCUSATE SODIUM 1 EACH TAB PO SCH (21:00)
[2022-01-26 02:42] VITALS: PULSE 62
[2022-01-26] MEDS: HYDROcodone/APAP 5-325MG 1 EACH TAB PO PRN ×2 (05:09→10:45)
[2022-01-26] MEDS: LACTATED RINGERS 1,000 ML IV SCH (05:56)
--- NOTE | 2022-01-26 07:44 | P.DS ---
Providers Expected date of discharge: 01/26/22 Attending physician: Jorge Nobles Consults: 01/25/22 15:32 Consult Physician Routine Consulting Provider: Ta Knott Consult Reason/Comments: medical management Do you want consulting provider notified?: Yes Primary care physician: Ta Knott - Discharge Diagnosis(es) (1) Primary osteoarthritis of left hip Current Visit: Yes Status: Acute (2) Status post total hip replacement, left Current Visit: Yes Status: Acute Hospital Course: This is a 56-year-old female with known history of degenerative arthritis of the left hip. The patient presents for evaluation. After discussion and conside ration patient elects to proceed with total hip arthroplasty with direct anterior approach. The patient is seen preoperatively by primary care physician and cleared for surgery. Patient is admitted to [facility] on 01/25/2022 for total hip arthroplasty with direct anterior approach. The procedure is performed without complication or sequelae. The patient is doing well postoperatively. Labs and vital signs are stable on day of discharge. On day of discharge patient's hip incision is healing well. There is minimal erythema. There is no drainage noted at this time. There is minimal soft tissue swelling to the hip and thigh. Patient has full foot and ankle motion without difficulty or pain. Neurovascular status to the lower extremity is intact. Patient is discharged to home in good condition. Please see med rec for accurate list of home medications. Patient Condition at Discharge: Good Plan - Discharge Summary Discharge Rx Participant: No New Discharge Prescriptions: New Aspirin 325 mg PO BID 30 Days #60 tab Celecoxib [CeleBREX] 200 mg PO DAILY #30 cap HYDROcodone/APAP 7.5-325MG [[place] 7.5-325] 1 - 2 tab PO Q6HR PRN 7 Days #32 tab PRN Reason: Pain Sennosides-Docusate Sodium [Senokot-S] 1 tab PO BID #60 tablet Ondansetron Odt [Zofran Odt] 4 mg PO Q8HR PRN #14 tab PRN Reason: Nausea No Action Acetaminophen Tab [Tylenol] 650 mg PO Q4H PRN PRN Reason: Pain Or Fever > 100.5 Ascorbic Acid [Vitamin C] 500 mg PO BID 30 Days #60 tab Leflunomide [Arava] 20 mg PO DAILY Zinc Sulfate [Orazinc] 220 mg PO DAILY 30 Days #30 cap Albuterol Inhaler [Ventolin Hfa Inhaler] 2 puff INHALATION RT-Q6H PRN gm PRN Reason: Shortness Of Breath Or Wheezing Cholecalciferol [Vitamin D3 (25 Mcg = 1000 Iu)] 50 mcg PO DAILY 30 Days #60 tablet Metoprolol Tab 25 mg PO QAM Discharge Medication List Acetaminophen Tab [Tylenol] 650 mg PO Q4H PRN 03/26/21 [History] Albuterol Inhaler [Ventolin Hfa Inhaler] 2 puff INHALATION RT-Q6H PRN gm 04/01/21 [Rx] Ascorbic Acid [Vitamin C] 500 mg PO BID 30 Days #60 tab 04/01/21 [Rx] Cholecalciferol [Vitamin D3 (25 Mcg = 1000 Iu)] 50 mcg PO DAILY 30 Days #60 tablet 04/01/21 [Rx] Zinc Sulfate [Orazinc] 220 mg PO DAILY 30 Days #30 cap 04/01/21 [Rx] Leflunomide [Arava] 20 mg PO DAILY 01/24/22 [History] Metoprolol Tab 25 mg PO QAM 01/24/22 [History] Aspirin 325 mg PO BID 30 Days #60 tab 01/25/22 [Rx] Celecoxib [CeleBREX] 200 mg PO DAILY #30 cap 01/25/22 [Rx] HYDROcodone/APAP 7.5-325MG [[place] 7.5-325] 1 - 2 tab PO Q6HR PRN 7 Days #32 tab 01/25/22 [Rx] Ondansetron Odt [Zofran Odt] 4 mg PO Q8HR PRN #14 tab 01/25/22 [Rx] Sennosides-Docusate Sodium [Senokot-S] 1 tab PO BID #60 tablet 01/25/22 [Rx] Follow up Appointment(s)/Referral(s): Maico Le [NON-STAFF] - 1-2 Days Jorge Nobles DO [Doctor of Osteopathic Medicine] - 2 Weeks Activity/Diet/Wound Care/Special Instructions: Weight bear as tolerated on operative extremity with a walker. Keep operative dressing on 7-10 days. Call the office if dressing becomes saturated. May shower 48 hours post-op. Take pain medications as prescribed. Take aspirin 325mg BID x 4 weeks for blood clot prevention. Follow-up in the office in two weeks with Dr. Nobles. Call the office with any questions or concerns,
[2022-01-26 08:36] VITALS: RESP 16; TEMP 98.3
[2022-01-26] MEDS: ASPIRIN 325 MG TAB PO SCH (09:42)
[2022-01-26 10:48] LABS: Basophils # (A) 0.02 X 10*3/uL (0.00-0.10); Basophils % (A) 0.2 %; Eosinophils # (A) 0.01 X 10*3/uL (0.04-0.35); Eosinophils % (A) 0.1 %; HCT 32.2 % (37.2-46.3); HGB 10.1 g/dL (12.0-15.0); Immature Grans, Automated 0.4 %; Lymphocytes # (A) 1.71 X 10*3/uL (0.90-5.00); Lymphocytes % (A) 18.7 %; MCH 29.5 pg (27.0-32.0); MCHC 31.4 g/dL (32.0-37.0); MCV 94.2 fL (80.0-97.0); Mean Platelet Volume 10.9 fL (9.5-12.2); Monocytes # (A) 0.98 X 10*3/uL (0.20-1.00); Monocytes % (A) 10.7 %; NRBC Per 100 WBC 0 /100 WBCS (0.0-0.0); Neutrophils # (A) 6.37 X 10*3/uL (1.80-7.70); Neutrophils % (A) 69.9 %; Platelet Count 230 X 10*3/uL (140-440); RBC 3.42 X 10*6/uL (4.10-5.20); RDW 13.6 % (11.5-14.5); WBC 9.13 X 10*3/uL (4.50-10.00)
[2022-01-26 12:27] VITALS: BP 101/68
== END 2022-01-26 12:45 ==
LOC: OR 12:04 → 4SSUR 15:20 → OR 01-26 12:45
PROVIDERS: ATTEND Orthopaedic Surgery
DX: M16.12 Unilateral primary osteoarthritis, left hip (principal); R00.2 Palpitations; Z88.0 Allergy status to penicillin; Z88.7 Allergy status to serum and vaccine; Z90.710 Acquired absence of both cervix and uterus; Z90.89 Acquired absence of other organs; Z98.891 History of uterine scar from previous surgery; Z96.651 Presence of right artificial knee joint; Z83.3 Family history of diabetes mellitus
CPT/HCPCS: 27130; 97161; 97535; 97165; 85025; 88300; 73501; C1776; J2250; J0690 ×3; J3010; J1170 ×2; J2795; J1885; J2704; J2001; 86850; 86900; 86901

== ENCOUNTER → 2023-08-26 | Outpatient (CLI) | payer OTHER ==
--- NOTE | 2023-08-26 08:54 | MR ---
EXAMINATION TYPE: MR knee LT wo con DATE OF EXAM: 08/26/2023 COMPARISON: None HISTORY: Lt knee pain, swelling, fall TECHNIQUE: Multiplanar, multisequence imaging of the left knee is performed without IV contrast. FINDINGS: There is a nondisplaced fracture of the lateral tibial plateau with marked bone marrow edema. The fra cture does not involve the articular surface. There is no tibial plateau compression deformity. There is moderate to marked tricompartment osteoarthritis with moderate to marked cartilaginous thinn ing and marginal hypertrophic spurring. There is a mild joint effusion. There is a subchondral cyst in the anterior medial femoral condyle. There is diffuse abnormal signal intensity within the central portion of the lateral meniscus but no discrete meniscal tear is seen. These are likely degenerative changes. There is no medial meniscal te ar. The cruciate and collateral ligaments are intact. IMPRESSION: 1. Nondisplaced and noncompressed horizontal lateral tibial plateau fracture with marked bone marrow edema. 2. Marked tricompartment osteoarthritis. 3. Small joint effusion. 4. Marked lateral meniscal degeneration but no definite meniscal tear. 5. No ligamentous injury.
== END | disposition home or self-care (01) ==
LOC: RADMRIMAIN 07:18
PROVIDERS: ATTEND Orthopaedic Surgery
DX: S82.125A Nondisplaced fracture of lateral condyle of left tibia, initial encounter for closed fracture (principal); M17.12 Unilateral primary osteoarthritis, left knee; M25.462 Effusion, left knee; X58.XXXA Exposure to other specified factors, initial encounter

== ENCOUNTER 2023-12-30 14:31 | Emergency (ER) | payer OTHER ==
[2023-12-30 14:36] VITALS: BP 115/54; PULSE 71; RESP 18; TEMP 97.9
--- NOTE | 2023-12-30 15:05 | ED ---
Lower Extremity Injury HPI - General Chief Complaint: Extremity Injury, Lower Stated Complaint: L ankle injury Time Seen by Provider: 12/30/23 14:50 Source: patient, RN notes reviewed Mode of arrival: ambulatory Limitations: no limitations - History of Present Illness Initial Comments: A 58-year-old female presents emergency department chief complaint of the left ankle and foot pain. Patient states that she tripped on the stairs a few days ago injuring her left ankle and bruising her right knee. Patient denies hitting her head or loss of conscious at the time this fall. Patient was originally evaluated at an emergency department at the time of the injury and was discharged in stable condition and instructed that she did not have any injury to the left ankle or foot. Patient was placed in a walking boot. Patient states that over the past few days she has had stent pain of the left foot and ankle with concern for potential fracture. She denies other acute injury. - Related Data Home Medications Medication Instructions Recorded Confirmed Acetaminophen Tab [Tylenol] 650 mg PO Q4H PRN 03/26/21 01/24/22 Leflunomide [Arava] 20 mg PO DAILY 01/24/22 01/24/22 Metoprolol Tab 25 mg PO QAM 01/24/22 01/24/22 Previous Rx's Medication Instructions Recorded Albuterol Inhaler [Ventolin Hfa 2 puff INHALATION RT-Q6H PRN gm 04/01/21 Inhaler] Ascorbic Acid [Vitamin C] 500 mg PO BID 30 Days #60 tab 04/01/21 Cholecalciferol [Vitamin D3 (25 50 mcg PO DAILY 30 Days #60 tablet 04/01/21 Mcg = 1000 Iu)] Zinc Sulfate [Orazinc] 220 mg PO DAILY 30 Days #30 cap 04/01/21 Aspirin 325 mg PO BID 30 Days #60 tab 01/25/22 Celecoxib [CeleBREX] 200 mg PO DAILY #30 cap 01/25/22 HYDROcodone/APAP 7.5-325MG [[place] 1 - 2 tab PO Q6HR PRN 7 Days #32 01/25/22 7.5-325] tab Ondansetron Odt [Zofran Odt] 4 mg PO Q8HR PRN #14 tab 01/25/22 Sennosides-Docusate Sodium 1 tab PO BID #60 tablet 01/25/22 [Senokot-S] Allergies Allergy/AdvReac Type Severity Reaction Status Date / Time Tetanus Vaccines and Toxoid Allergy Swelling Verified 12/30/23 14:36 Penicillins AdvReac Anaphylaxis Verified 12/30/23 14:36 Review of Systems ROS Statement: Those systems with pertinent positive or pertinent negative responses have been documented in the HPI. ROS Other: All systems not noted in ROS Statement are negative. Past Medical History Past Medical History: CVA/TIA, Osteoarthritis (OA) Additional Past Medical History / Comment(s): HX TIA, BRAIN ANEURYSM WITH COILS, HEART MURMUR, VARICOSE VEINS., PAIN Left HIP-USING CANE History of Any Multi-Drug Resistant Organisms: None Reported Past Surgical History: Appendectomy, Section, Hysterectomy, Orthopedic Surgery Additional Past Surgical History / Comment(s): X2, RIGHT KNEE ARTHROSCOPY, BRAIN ANEURYSM WITH COILS (1999). Past Anesthesia/Blood Transfusion Reactions: Previous Problems w/ Anesthesia Additional Past Anesthesia/Blood Transfusion Reaction / Comment(s): STATES BP AND HEART RATE DROPPED WITH ANEURYSM SURGERY., ALSO HAS DIFFICULTY WAKING UP. Past Psychological History: No Psychological Hx Reported Smoking Status: Former smoker Past Alcohol Use History: Occasional Past Drug Use History: None Reported - Past Family History Mother Family Medical History: Cancer Additional Family Medical History / Comment(s): LUNG CANCER Father Family Medical History: Cancer Additional Family Medical History / Comment(s): STOMACH CANCER Sister(s) Family Medical History: Cancer Additional Family Medical History / Comment(s): melanoma General Exam Limitations: no limitations General appearance: alert, in no apparent distress Head exam: Present: atraumatic, normocephalic, normal inspection Eye exam: Present: normal appearance, PERRL, EOMI. Absent: scleral icterus, conjunctival injection, periorbital swelling ENT exam: Present: normal exam, mucous membranes moist Neck exam: Present: normal inspection. Absent: tenderness, meningismus, lymphadenopathy Respiratory exam: Present: normal lung sounds bilaterally. Absent: respiratory distress, wheezes, rales, rhonchi, stridor Cardiovascular Exam: Present: regular rate, normal rhythm, normal heart sounds. Absent: systolic murmur, diastolic murmur, rubs, gallop, clicks GI/Abdominal exam: Present: soft, normal bowel sounds. Absent: distended, tenderness, guarding, rebound, rigid Left Ankle exam: Present: tenderness, swelling, ecchymosis. Absent: full ROM, laceration Foot/Toe exam: Present: tenderness, swelling, ecchymosis Neurovascular tendon exam: Present: no vascular compromise. Absent: pulse deficit, abnormal cap refill, motor deficit, sensory deficit, tendon deficit Gait: observed and limited by pain Back exam: Present: normal inspection Neurological exam: Present: alert, oriented X3, CN II-XII intact Psychiatric exam: Present: normal affect, normal mood Skin exam: Present: warm, dry, intact, normal color. Absent: rash Course Vital Signs 12/30/23 14:33 Temperature 97.9 F Pulse Rate 71 Respiratory 18 Rate Blood Pressure 115/54 O2 Sat by Pulse 98 Oximetry Medical Decision Making - Medical Decision Making Was pt. sent in by a medical professional or institution (SHALOM Espinal, ROTARY SCREEN PRINTING MACHINE OPERATOR, urgent care, hospital, or care home...) When possible be specific @ -No Did you speak to anyone other than the patient for history (EMS, parent, family, police, friend...)? What history was obtained from this source @ -No Did you review nursing and triage notes (agree or disagree)? Why? @ -I reviewed and agree with nursing and triage notes Were old charts reviewed (outside hosp., previous admission, EMS record, old EKG, old radiological studies, urgent care reports/EKG's, care home records)? Report findings @ -No old charts were reviewed Differential Diagnosis (chest pain, altered mental status, abdominal pain women, abdominal pain men, vaginal bleeding, weakness, fever, dyspnea, syncope, headache, dizziness, GI bleed, back pain, seizure, CVA, palpatations, mental health, musculoskeletal)? @ -Differential Musculoskeletal Muscular strain, contusion, ligament sprain, fracture, arthritis, septic arthritis, bursitis, cellulitis, muscle spasm, nerve compression, DVT, arterial occlusion, herpes zoster, electrolyte abnormality, tumor.... This is not meant to be in all inclusive list EKG interpreted by me (3pts min.). @ -None X-rays interpreted by me (1pt min.). @ -XR of the left foot and the left ankle reveals no evidence of acute fracture or dislocation CT interpreted by me (1pt min.). @ -None done U/S interpreted by me (1pt. min.). @ -None done What testing was considered but not performed or refused? (CT, X-rays, U/S, labs)? Why? @ -None What meds were considered but not given or refused? Why? @ -None Did you discuss the management of the patient with other professionals (professionals i.e. , PA, ROTARY SCREEN PRINTING MACHINE OPERATOR, lab, RT, psych nurse, social worker aide, sales representative advertising, teacher, corporate security officer, case reviewer)? Give summary @ -No Was smoking cessation discussed for >3mins.? @ -No Was critical care preformed (if so, how long)? @ -No Were there social determinants of health that impacted care today? How? (Homelessness, low income, unemployed, alcoholism, drug addiction, transportation, low edu. Level, literacy, decrease access to med. care, long-term, rehab)? @ -No Was there de-escalation of care discussed even if they declined (Discuss DNR or withdrawal of care, Hospice)? DNR status @ -No What co-morbidities impacted this encounter? (DM, HTN, Smoking, COPD, CAD, Cancer, CVA, ARF, Chemo, Hep., AIDS, mental health diagnosis, sleep apnea, morbid obesity)? @ -None Was patient admitted / discharged? Hospital course, mention meds given and route, prescriptions, significant lab abnormalities, going to OR and other pertinent info. @ -discharge. 58-year-old female with left ankle and foot pain. On examination patient is noted to have edema and ecchymosis of the left ankle and foot with pain most notable over the lateral malleolus. No pulses 2+ and there are no neurovascular deficits. Patient will be sent for repeat imaging of the ankle and foot for concern of potential missed fracture. Patient is reviewed this plan. Patient was offered additional medication for pain however she has declined at this time. X-rays negative for acute process. Recommend that patient continue to wear brace however maintain nonweightbearing status either using crutches or wheeling knee chair until she is able to follow-up with orthopedics. Patient states that she follows with a extension service specialist [facility] and will call their office on Monday to schedule a follow- up appointment. All questions answered at bedside and strict return parameters discussed with the patient she is verbalized understanding. Case discussed with Dr. Maurice Undiagnosed new problem with uncertain prognosis? @ -No Drug Therapy requiring intensive monitoring for toxicity (Heparin, Nitro, Insulin, Cardizem)? @ -No Were any procedures done? @ -No Diagnosis/symptom? @ -left ankle pain, left ankle sprain, ecchymosis of left ankle Acute, or Chronic, or Acute on Chronic? @ -Acute Uncomplicated (without systemic symptoms) or Complicated (systemic symptoms)? @ -uncomplicated Side effects of treatment? @ -No Exacerbation, Progression, or Severe Exacerbation? @ -No Poses a threat to life or bodily function? How? (Chest pain, USA, PA, pneumonia, PE, COPD, DKA, ARF, appy, cholecystitis, CVA, Diverticulitis, Homicidal, Suicidal, threat to staff... and all critical care pts) @ -No Disposition Clinical Impression: Ankle sprain, Ankle pain Disposition: HOME SELF-CARE Condition: Good Instructions (If sedation given, give patient instructions): Ankle Sprain (ED) Additional Instructions: Return to the emergency department for any new or worsening symptoms. Recommend that you maintain nonweightbearing status with boot and crutches. Follow-up with extension service specialist next week for further evaluation. Continue Tylenol at home for symptomatic relief. Rest, ice, elevate the left ankle. Is patient prescribed a controlled substance at d/c from ED?: No Referrals: Ta Knott MD [Primary Care Provider] - 1-2 days Time of Disposition: 15:32
--- NOTE | 2023-12-30 15:13 | XR ---
EXAMINATION TYPE: XR foot complete LT DATE OF EXAM: 12/30/2023 CLINICAL HISTORY: pain TECHNIQUE: Frontal, lateral and oblique images of the left foot are obtained. COMPARISON: None. FINDINGS: There is no acute fracture/dislocation evident. The joint spaces appear within normal barraza its. The overlying soft tissue appears unremarkable. IMPRESSION: There is no acute fracture or dislocation. ICD 10 NO FRACTURE, INITIAL EVALUATION
--- NOTE | 2023-12-30 15:14 | XR ---
EXAMINATION TYPE: XR ankle complete LT DATE OF EXAM: 12/30/2023 COMPARISON: NONE HISTORY: Pain TECHNIQUE: 3 views of the left ankle are submitted for evaluation. FINDINGS: There is no evidence for fracture or dislocation. Ankle mortise is intact. Soft tissues are within normal limits. IMPRESSION: 1. No evidence for acute fracture.
== END 2023-12-30 15:48 | disposition home or self-care (01) ==
LOC: EC 14:31
DX: S93.402A Sprain of unspecified ligament of left ankle, initial encounter (principal); Z87.891 Personal history of nicotine dependence; Z88.0 Allergy status to penicillin; Z88.8 Allergy status to other drugs, medicaments and biological substances; W01.0XXA Fall on same level from slipping, tripping and stumbling without subsequent striking against object, initial encounter
CPT/HCPCS: 99283

== ENCOUNTER 2024-05-11 13:47 | Emergency (ER) | payer OTHER ==
[2024-05-11 13:53] VITALS: RESP 18
--- NOTE | 2024-05-11 14:40 | ED ---
Arrhythmia/Palpitations HPI - General Chief Complaint: Arrhythmia/Palpitations Stated Complaint: Heart palp. Time Seen by Provider: 05/11/24 14:37 Source: patient, RN notes reviewed Mode of arrival: ambulatory Limitations: no limitations - History of Present Illness Initial Comments: 59-year-old female presenting to the ER chief complaint of palpitations x 1 day. States last night she was sitting down when she began to feel her heart racing. This occurred intermittently since last night and into this morning. Patient states that occurred both when she was going walking around and sitting. Patient has had this before however reports it has happened more frequently in the past few days. States she is not currently experiencing the palpitations. States this began after a couple glasses of wine last night. Denies chest pain or shortness of breath. Denies blood thinners. She follows with operations support manager in [place] however reports she has not seen him in quite some time. States she has a history of a heart murmur however denies any other known cardiac conditions. States she used to be on the medication for hypothyroidism however was taken off this medication several years ago. No other health conditions. - Related Data Home Medications Medication Instructions Recorded Confirmed Acetaminophen Tab [Tylenol] 650 mg PO Q4H PRN 03/26/21 01/24/22 Leflunomide [Arava] 20 mg PO DAILY 01/24/22 01/24/22 Metoprolol Tab 25 mg PO QAM 01/24/22 01/24/22 Previous Rx's Medication Instructions Recorded Albuterol Inhaler [Ventolin Hfa 2 puff INHALATION RT-Q6H PRN gm 04/01/21 Inhaler] Ascorbic Acid [Vitamin C] 500 mg PO BID 30 Days #60 tab 04/01/21 Cholecalciferol [Vitamin D3 (25 50 mcg PO DAILY 30 Days #60 tablet 04/01/21 Mcg = 1000 Iu)] Zinc Sulfate [Orazinc] 220 mg PO DAILY 30 Days #30 cap 04/01/21 Aspirin 325 mg PO BID 30 Days #60 tab 01/25/22 Celecoxib [CeleBREX] 200 mg PO DAILY #30 cap 01/25/22 HYDROcodone/APAP 7.5-325MG [[place]ett 1 - 2 tab PO Q6HR PRN 7 Days #32 01/25/22 7.5-325] tab Ondansetron Odt [Zofran Odt] 4 mg PO Q8HR PRN #14 tab 01/25/22 Sennosides-Docusate Sodium 1 tab PO BID #60 tablet 01/25/22 [Senokot-S] Allergies Allergy/AdvReac Type Severity Reaction Status Date / Time Tetanus Vaccines and Toxoid Allergy Swelling Verified 05/11/24 13:49 Penicillins AdvReac Anaphylaxis Verified 05/11/24 13:49 Review of Systems ROS Statement: Those systems with pertinent positive or pertinent negative responses have been documented in the HPI. ROS Other: All systems not noted in ROS Statement are negative. Past Medical History Past Medical History: CVA/TIA, Osteoarthritis (OA) Additional Past Medical History / Comment(s): HX TIA, BRAIN ANEURYSM WITH COILS, HEART MURMUR, VARICOSE VEINS., PAIN Left HIP-USING CANE History of Any Multi-Drug Resistant Organisms: None Reported Past Surgical History: Appendectomy, Section, Hysterectomy, Joint Replacement, Orthopedic Surgery Additional Past Surgical History / Comment(s): X2, RIGHT KNEE ARTHROSCOPY, BRAIN ANEURYSM WITH COILS (1999). Bilateral hip replacements Past Anesthesia/Blood Transfusion Reactions: Previous Problems w/ Anesthesia Additional Past Anesthesia/Blood Transfusion Reaction / Comment(s): STATES BP AND HEART RATE DROPPED WITH ANEURYSM SURGERY., ALSO HAS DIFFICULTY WAKING UP. Past Psychological History: No Psychological Hx Reported Smoking Status: Former smoker Past Alcohol Use History: Occasional Past Drug Use History: Marijuana - Past Family History Mother Family Medical History: Cancer Additional Family Medical History / Comment(s): LUNG CANCER Father Family Medical History: Cancer Additional Family Medical History / Comment(s): STOMACH CANCER Sister(s) Family Medical History: Cancer Additional Family Medical History / Comment(s): melanoma General Exam Limitations: no limitations General appearance: alert, in no apparent distress Head exam: Present: atraumatic, normocephalic, normal inspection Eye exam: Present: normal appearance, PERRL, EOMI. Absent: scleral icterus, conjunctival injection, periorbital swelling Respiratory exam: Present: normal lung sounds bilaterally. Absent: respiratory distress, wheezes, rales, rhonchi, stridor Cardiovascular Exam: Present: regular rate, normal rhythm, normal heart sounds. Absent: systolic murmur, diastolic murmur, rubs, gallop, clicks GI/Abdominal exam: Present: soft, normal bowel sounds. Absent: distended, tenderness, guarding, rebound, rigid Neurological exam: Present: alert, oriented X3 Psychiatric exam: Present: normal affect, normal mood Skin exam: Present: warm, dry, intact, normal color. Absent: rash Course Vital Signs 05/11/24 05/11/24 13:49 17:47 Temperature 98.5 F 97.9 F Pulse Rate 71 61 Respiratory 18 18 Rate Blood Pressure 143/69 130/78 O2 Sat by Pulse 100 100 Oximetry EKG Findings - EKG Results: EKG: interpreted by ERMD (EKG reveals normal sinus rhythm with no ST changes. Ventricular rate 72 bpm, OR interval 138, QRS duration 92, QT/QTc 386/410) Medical Decision Making - Medical Decision Making Was pt. sent in by a medical professional or institution ([facility], [facility], urgent care, hospital, or alf...) When possible be specific @ -No Did you speak to anyone other than the patient for history (EMS, parent, family, police, friend...)? What history was obtained from this source @ -No Did you review nursing and triage notes (agree or disagree)? Why? @ -I reviewed and agree with nursing and triage notes Were old charts reviewed (outside hosp., previous admission, EMS record, old EKG, old radiological studies, urgent care reports/EKG's, alf records)? Report findings @ -No old charts were reviewed Differential Diagnosis (chest pain, altered mental status, abdominal pain women, abdominal pain men, vaginal bleeding, weakness, fever, dyspnea, syncope, headache, dizziness, GI bleed, back pain, seizure, CVA, palpatations, mental health, musculoskeletal)? @ -Differential Palpitations Ventricular arrhythmias, atrial arrhythmias, myocardial infarction, anemia, thyrotoxicosis, electrolyte imbalance, hypokalemia, pulmonary embolism, pulmonary disease, drugs, alcohol, anxiety, stress.... This is not meant to be an all-inclusive list. EKG interpreted by me (3pts min.). @ -As above X-rays interpreted by me (1pt min.). @ -Chest x-ray reveals no acute process CT interpreted by me (1pt min.). @ -None done U/S interpreted by me (1pt. min.). @ -None done What testing was considered but not performed or refused? (CT, X-rays, U/S, labs)? Why? @ -None What meds were considered but not given or refused? Why? @ -None Did you discuss the management of the patient with other professionals (professionals i.e. , PA, [facility] SPR[facility]ER, lab, RT, psych nurse, social work administrator, tannery gummer, teacher, defence force senior officer, renal case manager)? Give summary @ -No Was smoking cessation discussed for >3mins.? @ -No Was critical care preformed (if so, how long)? @ -No Were there social determinants of health that impacted care today? How? (Homelessness, low income, unemployed, alcoholism, drug addiction, transporta tion, low edu. Level, literacy, decrease access to med. care, care home, rehab)? @ -No Was there de-escalation of care discussed even if they declined (Discuss DNR or withdrawal of care, Hospice)? DNR status @ -No What co-morbidities impacted this encounter? (DM, HTN, Smoking, COPD, CAD, Cancer, CVA, ARF, Chemo, Hep., AIDS, mental health diagnosis, sleep apnea, morbid obesity)? @ -None Was patient admitted / discharged? Hospital course, mention meds given and route, prescriptions, significant lab abnormalities, going to OR and other pertinent info. @ -Discharge. This is a 59-year-old female presenting to the ER with chief complaint of palpitations x 1 day. Currently asymptomatic. Vital signs within acceptable limits, heart rate 71. EKG reveals normal sinus rhythm with no ST changes. Chest x-ray reveals no acute process. Lab work including CBC, CMP, troponin, TSH, magnesium, coags unremarkable. Results discussed with patient. Patient remains asymptomatic. I believe it is safe to discharge patient home with close cardiology follow-up for further evaluation such as Holter monitor. Patient is agreeable to plan. Appropriate return precautions and follow-up care discussed. Case was discussed with my ED attending Dr. Torre. Undiagnosed new problem with uncertain prognosis? @ -No Drug Therapy requiring intensive monitoring for toxicity (Heparin, Nitro, Insulin, Cardizem)? @ -No Were any procedures done? @ -No Diagnosis/symptom? @ -Heart palpitations Acute, or Chronic, or Acute on Chronic? @ -Acute Uncomplicated (without systemic symptoms) or Complicated (systemic symptoms)? @ -Uncomplicated Side effects of treatment? @ -No Exacerbation, Progression, or Severe Exacerbation? @ -No Poses a threat to life or bodily function? How? (Chest pain, USA, AL, pneumonia, PE, COPD, DKA, ARF, appy, cholecystitis, CVA, Diverticulitis, Homicidal, Suicidal, threat to staff... and all critical care pts) @ -Not at this time - Lab Data Result diagrams: 05/11/24 15:54 05/11/24 15:54 Lab Results 05/11/24 05/11/24 05/11/24 Range/Units 15:54 15:54 15:54 WBC 5.3 (3.8-10.6) k/uL RBC 4.17 (3.80-5.40) m/uL Hgb 12.3 (11.4-16.0) gm/dL Hct 38.7 (34.0-46.0) % MCV 92.8 (80.0-100.0) fL MCH 29.6 (25.0-35.0) pg MCHC 31.8 (31.0-37.0) g/dL RDW 13.0 (11.5-15.5) % Plt Count 257 (150-450) k/uL MPV 7.6 Neutrophils % 58 % Lymphocytes % 33 % Monocytes % 5 % Eosinophils % 2 % Basophils % 0 % Neutrophils # 3.1 (1.3-7.7) k/uL Lymphocytes # 1.7 (1.0-4.8) k/uL Monocytes # 0.3 (0-1.0) k/uL Eosinophils # 0.1 (0-0.7) k/uL Basophils # 0.0 (0-0.2) k/uL PT 9.8 L (10.0-12.5) sec INR 0.9 (<1.2) APTT 19.8 L (22.0-30.0) sec Sodium 140 (137-145) mmol/L Potassium 3.9 (3.5-5.1) mmol/L Chloride 110 H (98-107) mmol/L Carbon Dioxide 25 (22-30) mmol/L Anion Gap 5 mmol/L BUN 14 (7-17) mg/dL Creatinine 0.77 (0.52-1.04) mg/dL Est GFR (CKD-EPI)AfAm >90 (>60 ml/min/1.73 sqM) Est GFR (CKD-EPI)NonAf 84 (>60 ml/min/1.73 sqM) Glucose 83 (74-99) mg/dL Calcium 9.2 (8.4-10.2) mg/dL Magnesium 2.0 (1.6-2.3) mg/dL Total Bilirubin 0.7 (0.2-1.3) mg/dL AST 21 (14-36) U/L ALT 10 (4-34) U/L Alkaline Phosphatase 67 (38-126) U/L Troponin I (0.000-0.034) ng/mL Total Protein 7.7 (6.3-8.2) g/dL Albumin 4.3 (3.5-5.0) g/dL TSH 0.561 (0.465-4.680) mIU/L 05/11/24 Range/Units 15:54 WBC (3.8-10.6) k/uL RBC (3.80-5.40) m/uL Hgb (11.4-16.0) gm/dL Hct (34.0-46.0) % MCV (80.0-100.0) fL MCH (25.0-35.0) pg MCHC (31.0-37.0) g/dL RDW (11.5-15.5) % Plt Count (150-450) k/uL MPV Neutrophils % % Lymphocytes % % Monocytes % % Eosinophils % % Basophils % % Neutrophils # (1.3-7.7) k/uL Lymphocytes # (1.0-4.8) k/uL Monocytes # (0-1.0) k/uL Eosinophils # (0-0.7) k/uL Basophils # (0-0.2) k/uL PT (10.0-12.5) sec INR (<1.2) APTT (22.0-30.0) sec Sodium (137-145) mmol/L Potassium (3.5-5.1) mmol/L Chloride (98-107) mmol/L Carbon Dioxide (22-30) mmol/L Anion Gap mmol/L BUN (7-17) mg/dL Creatinine (0.52-1.04) mg/dL Est GFR (CKD-EPI)AfAm (>60 ml/min/1.73 sqM) Est GFR (CKD-EPI)NonAf (>60 ml/min/1.73 sqM) Glucose (74-99) mg/dL Calcium (8.4-10.2) mg/dL Magnesium (1.6-2.3) mg/dL Total Bilirubin (0.2-1.3) mg/dL AST (14-36) U/L ALT (4-34) U/L Alkaline Phosphatase (38-126) U/L Troponin I <0.012 (0.000-0.034) ng/mL Total Protein (6.3-8.2) g/dL Albumin (3.5-5.0) g/dL TSH (0.465-4.680) mIU/L Disposition Clinical Impression: Heart palpitations Disposition: HOME SELF-CARE Condition: Stable Instructions (If sedation given, give patient instructions): Heart Palpitations (ED) Additional Instructions: Follow-up with operations support manager as discussed. Please return to the Emergency Department if symptoms worsen or any other concerns. Is patient prescribed a controlled substance at d/c from ED?: No Referrals: Ta Knott MD [Primary Care Provider] - 1-2 days Time of Disposition: 17:37
[2024-05-11 16:02] LABS: Basophils % (A) 0 %; Eosinophils # (A) 0.1 k/uL (0-0.7); Eosinophils % (A) 2 %; HCT 38.7 % (34.0-46.0); HGB 12.3 gm/dL (11.4-16.0); Lymphocytes # (A) 1.7 k/uL (1.0-4.8); Lymphocytes % (A) 33 %; MCH 29.6 pg (25.0-35.0); MCHC 31.8 g/dL (31.0-37.0); MCV 92.8 fL (80.0-100.0); Mean Platelet Volume 7.6; Monocytes # (A) 0.3 k/uL (0-1.0); Monocytes % (A) 5 %; Neutrophils # (A) 3.1 k/uL (1.3-7.7); Neutrophils % (A) 58 %; Platelet Count 257 k/uL (150-450); RBC 4.17 m/uL (3.80-5.40); WBC 5.3 k/uL (3.8-10.6)
[2024-05-11 16:18] LABS: ALT 10 U/L (4-34); African American GFR (CKD) >90 (>60 ml/min/1.73 sqM); Albumin 4.3 g/dL (3.5-5.0); Anion Gap 5 mmol/L; Blood Urea Nitrogen 14 mg/dL (7-17); Calcium 9.2 mg/dL (8.4-10.2); Carbon Dioxide 25 mmol/L (22-30); Chloride 110 mmol/L (98-107); Glucose 83 mg/dL (74-99); Non-African American GFR(CKD) 84 (>60 ml/min/1.73 sqM); Sodium 140 mmol/L (137-145); Total Bilirubin 0.7 mg/dL (0.2-1.3); Total Protein 7.7 g/dL (6.3-8.2)
[2024-05-11 16:23] LABS: INR 0.9 (<1.2); Prothrombin Time 9.8 sec (10.0-12.5)
--- NOTE | 2024-05-11 16:30 | XR ---
EXAMINATION TYPE: XR chest 2V DATE OF EXAM: 05/11/2024 4:24 PM COMPARISON: Previous chest radiograph 03/24/2021. CLINICAL INDICATION: Female, 59 years old with history of palpitations; [facility] TECHNIQUE: XR chest 2V Frontal and lateral views of the chest. FINDINGS: Heart size is within normal limits. I find no acute focal consolidation. No pleural effusion or pneumothorax. Lungs hyperinflated bilaterally with coarsening of interstitial markings. No acute osseous abnormalit y. IMPRESSION: 1. No acute cardiopulmonary disease/process. 2. Findings suggesting underlying COPD. [facility], , 05/11/2024 4:27 PM
[2024-05-11 16:31] LABS: AST 21 U/L (14-36); Alkaline Phosphatase 67 U/L (38-126); Potassium 3.9 mmol/L (3.5-5.1)
[2024-05-11 16:33] LABS: Partial Thromboplastin Time 19.8 sec (22.0-30.0)
[2024-05-11 17:49] VITALS: BP 130/78; PULSE 61; TEMP 97.9
== END 2024-05-11 17:51 | disposition home or self-care (01) ==
LOC: EC 13:47
DX: R00.2 Palpitations (principal); Z87.891 Personal history of nicotine dependence; Z88.0 Allergy status to penicillin; Z88.7 Allergy status to serum and vaccine
CPT/HCPCS: 36415; 71046; 80053; 83735; 84443; 84484; 85025; 85610; 85730; 93005; 99285